=== PATIENT | female | born 1945 | race Caucasian/White ===

== ENCOUNTER 2020-07-31 16:16 | IRF | payer MEDICARE, OTHER, SELFPAY ==
--- NOTE | ~2020-07-31 | CT_ITS ---
EXAMINATION: CT abdomen pelvis wo/w con DATE: 08/14/2020 17:06 INDICATION: Hematuria with blood clot TECHNIQUE: Computed tomography (CT) of the abdomen and pelvis was performed without and with 130 cc O mnipaque 350 intravenous contrast. The dose-length product was 1206.56 mGy-cm. COMPARISON: None. FINDINGS: There is a 5 mm right lower lobe nodule, partially visualized. There are small pleural effu sions. There is left lower lobe atelectasis. There is ascites. There is complex heterogeneous enhancing soft tissue in the bladder which may relat e to blood clots, although malignancy is not excluded. There is a Haskins catheter in the bladder which is displaced to the right. Gallbladder is present. Small subcentimeter hypodensity of the left hepatic lobe, too small to characterize., Although likely benign. The spleen, pancreas, adrenal glands and kidneys are unremarkable. Severe lumbar spondylosis with levoscoliosis. There are extensive postsurgical changes in the lower thoracic and upper lumbar spine. There is a T12 body fracture with implant between the T11 and L1 vertebra. Pathologic fracture cannot be excluded. IMPRESSION: 1. Heterogeneous enhancing soft tissue in the bladder which may relate to blood clots, although malig deidre is not excluded. Recommend urology consultation. 2: Nonspecific 5 mm right lower lobe nodule. Differential diagnosis includes benign etiology such as granulomatous disease versus metastatic disease. 3: Small pleural effusions. 4: Small amount of ascites in the abdomen and pelvis. Reviewed, dictated and finalized at location A. RITY ATTENDANT IMPRESSION: 1. Heterogeneous enhancing soft tissue in the bladder which may relate to blood clots, although malignancy is not excluded. Recommend urology consultation. 2: Nonspecific 5 mm right lower lobe nodule. Differential diagnosis includes be nign etiology such as granulomatous disease versus metastatic disease. 3: Small pleural effusions. 4: Small amount of ascites in the abdomen and pelvis.
--- NOTE | ~2020-07-31 | XR_ITS ---
EXAMINATION: XR abdomen/kub 1V DATE: 08/14/2020 08:35 INDICATION: Abdominal pain. TECHNIQUE: A supine view of the abdomen on 2 radiographs was obtained. COMPARISON: None. FINDINGS: There are no dilated loops of bowel. There is a moderate volume of stool in the colon. Ther e are changes of anterior and posterior fusion procedures in thoracolumbar spine. There are airspace opacities in left lung lower lobe. IMPRESSION: 1. Nonobstructive bowel gas pattern. 2. Airspace opacities at left lung lower lobe, consistent with atelectasis versus pneumonia. Reviewed, dictated and finalized at location A. WAY SIGNAL OPERATOR IMPRESSION: 1. Nonobstructive bowel gas pattern. 2. Airspace opacities at left lung lower lobe, consistent with atelectasis vers us pneumonia.
--- NOTE | ~2020-07-31 | XR_ITS ---
EXAMINATION: XR lumbar spine 2-3V DATE: 08/13/2020 08:50 INDICATION: Low back pain. TECHNIQUE: 3 views of lumbar spine were obtained. COMPARISON: None. FINDINGS: There is 7 degrees levocurvature of lumbar spine. There is 7 mm anterolisthesis of L4 on L5 . There are changes of posterior fusion procedure from T10 to L2. There is a fracture of T12 vertebra l body, and there is an implant between the endplates of T11 and L1. There is moderately decreased di sc height at L3-L4 and severely decreased disc height at L4-L5 and L5-S1. There is severe facet joint osteoarthritis from L3-L4 through L5-S1. There is resection of the medial aspects of the T12 ribs. IMPRESSION: 1. Severe lumbar spondylosis. 2. Posterior fusion procedure from T10 to L2. 3. T12 vertebral body fracture with implant between the T11 and L1 vertebral bodies. Reviewed, dictated and finalized at location A. RESOLUTION SPECIALIST IMPRESSION: 1. Severe lumbar spondylosis. 2. Posterior fusion procedure from T10 to L2. 3. T12 vertebral body fracture with implant between the T11 and L1 vertebral linus dies.
--- NOTE | ~2020-07-31 | XR_ITS ---
EXAMINATION: XR thoracic spine 2V DATE: 08/13/2020 08:50 INDICATION: Back pain. TECHNIQUE: 3 views of thoracic spine were obtained. COMPARISON: None. FINDINGS: There is 30 degrees dextroscoliosis from T4 to T8. There is a fracture of T12 vertebral bod y. There is an implant between the T11 and L1 endplates. There are changes of posterior fusion proced ure from T10 to L2 with pedicle screws in T10, T11, L1, and L2. There has been resection of the media l aspects of the T12 ribs. There is mild anterior wedging of T8 vertebral body. There is moderately d ecreased disc height at T5-T6 and severely decreased disc height at T6-T7. There is mildly decreased disc height at multiple levels. There is a right internal jugular port with tip in superior vena cava . IMPRESSION: 1. Age-indeterminate mild compression fracture of T8. 2. T12 fracture with implant between the T11 and L1 endplates. 3. Posterior fusion procedure from T10 to L2. 4. Severe mid thoracic spondylosis. 5. Thoracic dextroscoliosis. Reviewed, dictated and finalized at location A. ORT REFUELING HANDLER
--- NOTE | ~2020-07-31 | XR_ITS ---
EXAMINATION: XR chest 1V portable EXAM DATE: 08/19/2020 09:05 INDICATION: Elevated white blood cell count, possible pneumonia. TECHNIQUE: Portable AP frontal chest x-ray was obtained. Correlation is made to thoracic x-ray from 10/14/2019, is causing known cancer. FINDINGS: There is approximately 3 cm rounded opacity projecting over the right-sided Chemo-Port. Dif ferential diagnosis includes acute pneumonia, metastatic disease. There is prominent right apical ret iculation, could be scarring but pneumonia also possible. Possible left midlung zone 1 cm nodular den sity. Some left basilar linear scarring. Skin fold over the left hemithorax, no pneumothorax suspecte d. Thoracal lumbar Stanton rods, lower thoracic corpectomy. Mild to moderate mid thoracic dextrosc oliosis. IMPRESSION: Right-sided 3 cm density and some right apical opacities, could be pneumonia. Left-sided 1 cm density. Malignancy/metastatic disease also possible. Follow-up chest x-ray or CT after antibiot ics course recommended. Reviewed, dictated and finalized at location A. INE MAINTENANCE TECHNICIAN IMPRESSION: Right-sided 3 cm density and some right apical opacities, could be pneumonia. Left-sided 1 cm density. Malignancy/metastatic disease also possible . Follow-up chest x-ray or CT after antibiotics course recommended.
--- NOTE | 2020-07-31 16:38 | PC.NURSE ---
This patient, Bambi Anderson, was admitted to [facility] Room 223-02. Patient/family oriented to hospital policies and general routines including ID bracelet, bed and alarms, visiting hours, pain management, procedures, bathroom and other care routines, personal items, smoking policy, room service/diet, and visiting hours. Information on how to activate the Rapid Response Team has been discussed. Patient/Family are encouraged to report perceived risks to care and to ask questions if they do not understand what they are told or what they should do.
[2020-07-31 16:39] VITALS: BP 143/76; PULSE 93; RESP 20; TEMP 37; O2SAT 99; BMI 28.5
[2020-07-31] MEDS: LATANOPROST 0.005% OP SOLN 2.5 ML BTL 1 DROP EACH EYE (21:29)
[2020-07-31] MEDS: CYCLOBENZAPRINE HCL 10 MG TABLET PO (21:29)
[2020-07-31] MEDS: DEXAMETHASONE 4 MG TABLET PO (21:29)
[2020-07-31 22:00] VITALS: BP 138/76; PULSE 92; RESP 18; TEMP 36.8; O2SAT 100
[2020-08-01] MEDS: ACETAMINOPHEN 500 MG TABLET 1000 MG PO (03:44)
[2020-08-01 05:23] LABS: Basophils Percent Auto 0.3 % (0.2-1.2); Eosinophils Percent Auto 0.3 % (0-4.4); Hematocrit 27.8 % (37.0-47.0); Hemoglobin 9.5 g/dL (12.0-15.0); Immature Granulocyte Absolute 0.31 K/mm3 (0.00-0.031); Immature Granulocyte Percent A 9.7 % (0-0.5); Lymphocytes Percent Auto 15.7 % (18.3-44.2); Mean Corpuscular HGB Conc 34.2 g/dl (32-36); Mean Corpuscular Hemoglobin 30.7 pg (26-34); Mean Platelet Volume 10.6 fl (7.4-10.4); Monocytes Absolute Auto 0.4 K/mm3 (0.1-0.6); Platelet Count Result 86 k/mm3 (150-375); Red Blood Count 3.09 M/mm3 (4.2-5.4); Red Cell Distribution Width 14.4 % (11.5-14.5); White Blood Count 3.2 K/mm3 (4.5-10.0)
[2020-08-01 05:41] LABS: Anion Gap -2 mmol/L (8-16); Blood Urea Nitrogen 28 mg/dL (7-17); Calcium 7.5 mg/dL (8.4-10.2); Carbon Dioxide 35 mmol/L (22-30); Chloride 101 mmol/L (98-107); Estimated CRCL calculation 58 ml/min; Estimated Glomerular Filt Rate > 60; Glucose 99 mg/dL (65-105); Potassium 3.5 mmol/L (3.4-5.0); Sodium 134 mmol/L (137-145)
[2020-08-01 06:00] VITALS: BP 154/76; PULSE 78; RESP 18; TEMP 36.5; O2SAT 100
[2020-08-01 09:05] VITALS: PULSE 78
[2020-08-01] MEDS: CHOLECALCIFEROL 1,000 UNITS TABLET 1000 UNITS PO (09:05)
[2020-08-01] MEDS: METOPROLOL SUCCINATE EXT REL 50 MG TABCR PO (09:05)
[2020-08-01] MEDS: DOCUSATE SODIUM 100 MG CAPSULE PO ×2 (09:05→17:50)
[2020-08-01] MEDS: SIMVASTATIN 20 MG TABLET 40 MG PO (09:05)
[2020-08-01] MEDS: DEXAMETHASONE 2 MG TABLET PO ×2 (09:05→17:52)
[2020-08-01] MEDS: CYANOCOBALAMIN 1,000 MCG TABLET 1000 MCG PO (09:05)
[2020-08-01] MEDS: FAMOTIDINE 20 MG TABLET PO (09:05)
[2020-08-01] MEDS: hydroCHLOROthiazide 25 MG TABLET PO (09:05)
[2020-08-01] MEDS: MULTIVITAMINS /C LUTEIN (CENTRUM SILVER) TABLET *BKC 1 TAB PO (09:05)
[2020-08-01 12:17] VITALS: BMI 28.5
--- NOTE | 2020-08-01 12:17 | WPDREHABHP ---
H&P: HPI History of Present Illness Date/Time: 08/01/20 12:17 Chief complaint: T12 Patholoigic burst fx Narrative: Bambi Anderson is a 74 year old femaleHISTORY OF PRESENT ILLNESS: The patient's primary rehab impairment category is Spinal cord dysfunction that is non traumatic in nature The etiologic diagnosis is T12 pathological burst fracture with severe spinal stenosis and mild cord signal abnormalities I saw this patient [id number] on August 01, 2020 at 11:30 a.m. The patient is a 74 years old female with primary medical history of hypertension, hearing loss, glaucoma, bladder cancer with bone Herron states is, right ventricular apex mass, multiple subcutaneous lesion, is status post TURB on April 09, 2020, on gemcitabine / cisplatin cycle 2, and is status post therapeutic radiation treatment to sacrum on July 10, 2020. The patient previously ambulated with a cane with bilateral back and hip pain without radiation and mild weakness for the last several months. The patient endorses numbness from the waist to feet. MRI and CT demonstrates T12 pathological burst fracture with severe stenosis of his spinal canal mild cord signal abnormality. Between JanuaryApril 2020 multiple masses and lesions in various locations were discovered via Various imaging and attempted procedures. medical oncology was consulted and reported the patient has baseline functional status high enough to receive substantial benefit from surgical intervention. Oncology recommended to proceed with spinal cord decompression as per Neurosurgery, with legal receptionist of CTX afterwards. The patient underwent a T10 L2 PSF with T12 corpectomy on 07/26 by . Postoperative Bird the patient admitted to ICU for blood pressure augmentation and neurological monitoring. E coli UTI was present on urinalysis and urine culture on 07/24. She is on antibiotic prophylaxis of vancomycin and ceftriaxone for spinal surgery a 3 day course of ceftriaxone will also cover UTI is starting 12 4. On 07/29 the patient's platelet was 40 and she was transfused 1unit of platelets with increased to 148. The patient has experience postoperative complications of bilateral leg weakness, ABLA, acute postoperative pain, hypokalemia, hypomagnesemia elevated BUN, elevated troponin in setting of demand ischemia, hypocalcemia thrombocytopenia, leukocytosis, UTI with urinary incontinence. The patient is awake alert oriented x3 she was discharged to [facility]. Patient is on Lovenox for DVT prophylaxis which will be continued until she is ambulating 150ft consistently. By a tics are completed. Patient will set up appointment to follow up with oncologist following rehab Completion. Patient completed chemotherapy in June. COVID: The patient has not traveled outside the [place] or had contact with someone who is ill that has traveled outside the [place] in the past 21 days the patient has not traveled to an area of the [place] there is experiencing known transmission of the Coronavirus and has not had close personal contact with anyone that has. The patient does not have a fever. The patient is not experiencing lower respiratory illness symptoms. the patient tested negative for COVID on July 24, 2020 Therapy was initiated at the [facility] facility and the patient transferred to us from [facility] on July 31, 2020 FALLS OR SURGERIES: the patient has had major surgery in the last 100 days( [id number] with T12 corpectomy on July 26, 2020) the patient has had falls in the past 6 months. The patient has had falls with injury in the past 6 months. PAST MEDICAL HISTORY: hyperlipidemia, hearing loss, glaucoma, processes, vitamin-D deficiency, bladder cancer with bone metastatic disease, bone lesions in the right humerus, or lesions in the left pelvic bone, bone lesions in T12 vertebra with spinal cord compression, Hypertension hypertension right ventricle apex mass multiple subcutaneous lesions, on Octo
[2020-08-01 14:00] VITALS: BP 128/56; PULSE 93; RESP 18; TEMP 36.5; O2SAT 98
--- NOTE | 2020-08-01 14:59 | RPD ---
INDIVIDUALIZED PLAN OF CARE FOR Bambi Anderson Brief Synthesis of Pre-Admission Screen, Post-Admission Evaluation and Therapy Evaluations: The patient presents to rehab with T12 pathologic burst fracture with severe spinal stenosis with mild cord signal abnormality. Comorbidities include s/p T10-L2 posterior spinal fusion and T12 corpectomy, stage IVB urothelial carcinoma, HTN, hyperlipidemia, hearing loss, glaucoma, osteoporosis, Vitamin D deficiency, bladder cancer with bone mets, bone lesions in the right humerus, bone lesions left pelvic bone, bone lesion T12 vertebra with c/f spinal cord compression, right ventricle apex mass, multiple subcutaneous lesions, acute post-operative pain, acute blood loss anemia, bilateral leg weakness, hypokalemia, hypomagnesemia, elevated BUN, hypocalcemia, leukocytosis, E.Coli UTI with urinary incontinence, and thrombocytopenia. The complexity of the patient's medical management, nursing, and therapy needs require an inpatient rehab hospital stay with a physician-led interdisciplinary team approach. The patient?s needs will be best met in an intensive program vs. at a lower level of care. The patient requires physician services for neurology services, medical oversight, and coordination of care. The patient requires nursing services for frequent neuro checks, anticoagulation therapy, medication management and education, pressure relief and skin care management, monitoring of labs, bowel and bladder training, and fall/safety precautions. Deficits include:ADLs, Balance, Endurance, Family Training/Education, Mobility, Pain Management, ROM, Safety, Strength, Transfers Infrastructure Tech/Case Management for: Discharge Planning and Patient/Family Counseling Physical Therapy: 5 days per week for 90 minutes. Treatments may include: Therapeutic Exercise, Gait Training, Neuromuscular Re-education, Transfer Training, Community Reintegration, Bed Mobility, Patient/Family Education, Wheelchair Mobility Group Therapy/Concurrent Therapy Rationales: -Improve attention span during functional activities in a distracted environment. -Enhance problem solving and/or adequate judgment skills during functional activities in a distracted environment. -Promote increased safety awareness in a distracted environment to reduce fall risk with functional tasks, transfers, and ambulation to allow a more safe, self-sufficient return to the home environment. -Improve dynamic balance skills to promote safety and independence with functional activities in a distracted environment for maximum gain. Occupational Therapy: 5 days per week for 90 minutes. Treatments may include: Therapeutic Exercise, Therapeutic Activity, Cognitive Training, Self-Care Transfer Training, Community Reintegration, Home Management, Patient/Family Education, Wheelchair Mobility Training, Energy Conservation Training Group Therapy/Concurrent Therapy Rationales: -Allow therapist to observe and teach generalization and carry-over of skills learned in individual therapy. -Enhance problem solving and sequencing skills during therapeutic activities in a distracted environment. -Promote increased safety awareness in a realistic setting to reduce fall risk with functional tasks due to visual and verbal distractions. -Increase functional level with ADLs, ADL transfers and use of adaptive equipment through therapeutic activities with others while promoting safety to allow a more safe, self-sufficient return home. Medical Prognosis: Good Anticipated Length of Stay: 14 days Rehab Goals: Eating Goal: 06-Independent Oral Hygiene Goal: 06-Independent Toileting Hygiene Goal: 03-Partial/Moderate Assistance Shower/Bathe Self Goal: 03-Partial/Moderate Assistance Upper Body Dressing Goal: 05-Setup or Clean Up Assistance Lower Body Dressing Goal: 03-Partial/Moderate Assistance Putting On/Taking Off Footwear Goal: 03-Partial/Moderate Assistance Rolling Left and Right Goal: 04-Supervision or Touching Assist
[2020-08-01] MEDS: LATANOPROST 0.005% OP SOLN 2.5 ML BTL 1 DROP EACH EYE (20:21)
[2020-08-01] MEDS: CYCLOBENZAPRINE HCL 10 MG TABLET PO (20:21)
[2020-08-02] VITALS (8 sets, daily range): BP systolic 124–139; BP diastolic 60–69; PULSE 74–84; RESP 18–20; TEMP 36.6–36.7; O2SAT 98–100
[2020-08-02] MEDS: MULTIVITAMINS /C LUTEIN (CENTRUM SILVER) TABLET *BKC 1 TAB PO (08:30)
[2020-08-02] MEDS: SIMVASTATIN 20 MG TABLET 40 MG PO (08:30)
[2020-08-02] MEDS: DEXAMETHASONE 2 MG TABLET PO ×2 (08:30→17:15)
[2020-08-02] MEDS: CYANOCOBALAMIN 1,000 MCG TABLET 1000 MCG PO (08:31)
[2020-08-02] MEDS: DOCUSATE SODIUM 100 MG CAPSULE PO (08:31)
[2020-08-02] MEDS: CHOLECALCIFEROL 1,000 UNITS TABLET 1000 UNITS PO (08:31)
[2020-08-02] MEDS: hydroCHLOROthiazide 25 MG TABLET PO (08:31)
[2020-08-02] MEDS: METOPROLOL SUCCINATE EXT REL 50 MG TABCR PO (08:31)
[2020-08-02] MEDS: FAMOTIDINE 20 MG TABLET PO (08:31)
[2020-08-02] MEDS: ACETAMINOPHEN 500 MG TABLET 1000 MG PO ×2 (08:38→15:39)
[2020-08-02] MEDS: CYCLOBENZAPRINE HCL 10 MG TABLET PO (20:25)
[2020-08-02] MEDS: LATANOPROST 0.005% OP SOLN 2.5 ML BTL 1 DROP EACH EYE (20:25)
[2020-08-03 06:00] VITALS: BP 133/84; PULSE 81; RESP 20; TEMP 36.7; O2SAT 98
[2020-08-03] MEDS: CHOLECALCIFEROL 1,000 UNITS TABLET 1000 UNITS PO (09:27)
[2020-08-03] MEDS: CYANOCOBALAMIN 1,000 MCG TABLET 1000 MCG PO (09:27)
[2020-08-03] MEDS: FAMOTIDINE 20 MG TABLET PO (09:28)
[2020-08-03 09:29] VITALS: PULSE 81
[2020-08-03] MEDS: METOPROLOL SUCCINATE EXT REL 50 MG TABCR PO (09:29)
[2020-08-03] MEDS: SIMVASTATIN 20 MG TABLET 40 MG PO (09:30)
[2020-08-03] MEDS: MULTIVITAMINS /C LUTEIN (CENTRUM SILVER) TABLET *BKC 1 TAB PO (09:30)
[2020-08-03] MEDS: DEXAMETHASONE 2 MG TABLET PO (09:30)
--- NOTE | 2020-08-03 10:13 | WPDNEURORHBP ---
Subjective Date/time seen: 08/03/20 10:13 74 years old lady with spinal cord dysfunction nontraumatic in nature because of the pathological T12 burst fracture and severe spinal stenosis has significant bilateral pitting edema of lower extremities in addition to ongoing comorbid conditions of 1. Hypertension 2. Hearing loss 3. Glaucoma 4. Bladder cancer 5. Bone Herron status is with right ventricular apex mass and status post radiation treatment involving the therapy has no specific complaints except the edema of the lower extremities Review of Systems Review of Systems: All systems reviewed & are unremarkable except as noted in HPI and below Exam Narrative: Exam Narrative: on examination she is awake alert in no obvious acute distress, his speech nor dysphasic not dysarthric, visual mendes are normal, no facial asymmetry able to move upper extremities well, and lower extremities are with bilateral pitting edema though she is able to wiggle the toes Objective Data Vital Signs Vital Signs: Vital Signs - 24 hr 08/02/20 14:00 08/02/20 15:39 08/02/20 22:00 Temperature 36.6 C 36.6 C 36.7 C Pulse Rate 74 84 Respiratory Rate 20 18 Blood Pressure 127/60 124/69 Pulse Oximetry 100 98 08/03/20 06:00 08/03/20 09:29 Temperature 36.7 C Pulse Rate 81 81 Respiratory Rate 20 Blood Pressure 133/84 Pulse Oximetry 98 Intake/Output Intake/Output: Intake & Output 07/31/20 08/01/20 08/02/20 08/03/20 23:59 23:59 23:59 23:59 Intake Total 240 960 720 240 Balance 240 960 720 240 Meds/Results Medications: Active Medications Generic Name Dose Route Start Last Admin Trade Name Freq PRN Reason Stop Dose Admin Acetaminophen 1,000 mg 07/31/20 17:34 08/02/20 15:39 Acetaminophen 500 Mg Tablet PO 1,000 mg Q6H PRN Administration Pain (Scale Score 1-3) Cyanocobalamin 1,000 mcg 08/01/20 09:00 08/03/20 09:27 Cyanocobalamin 1,000 Mcg Tablet PO 1,000 mcg DAILY MORA Administration Cyclobenzaprine HCl 10 mg 07/31/20 21:00 08/02/20 20:25 Cyclobenzaprine Hcl 10 Mg Tablet PO 10 mg HS MORA Administration Dexamethasone 2 mg 08/03/20 09:00 08/03/20 09:30 Dexamethasone 2 Mg Tablet PO 08/04/20 09:01 2 mg DAILY MOAR Administration Docusate Sodium 100 mg 08/01/20 09:00 08/03/20 09:43 Docusate Sodium 100 Mg Capsule PO Not Given BID [facility] Enoxaparin Sodium 30 mg 08/01/20 09:00 Enoxaparin 30 Mg/0.3 Ml Syringe SUB-Q DAILY MORA Famotidine 20 mg 08/01/20 09:00 08/03/20 09:28 Famotidine 20 Mg Tablet PO 20 mg DAILY MORA Administration Hydrochlorothiazide 25 mg 08/01/20 09:00 08/02/20 08:31 Hydrochlorothiazide 25 Mg Tablet PO 25 mg DAILY MORA Administration Latanoprost 1 drop 07/31/20 21:00 08/02/20 20:25 Latanoprost 0.005% Op Soln 2.5 Ml Btl EACH EYE 1 drop HS MORA Administration Metoprolol Succinate 50 mg 08/01/20 09:00 08/03/20 09:29 Metoprolol Succinate Ext Rel 50 Mg Tabcr PO 50 mg DAILY MORA Administration Multivitamins/Minerals 1 tab 08/01/20 09:00 08/03/20 09:30 Multivitamins /C Lutein (Centrum Silver) Tablet *Bkc PO 1 tab DAILY MORA Administration Oxycodone HCl 10 mg 07/31/20 17:34 Oxycodone Hcl (*Crx) 5 Mg Tab Ir PO Q4H PRN Pain (Scale Score 7-10) Simvastatin 40 mg 08/01/20 09:00 08/03/20 09:30 Simvastatin 20 Mg Tablet PO 40 mg DAILY MORA Administration Vitamin D 1,000 units 08/01/20 09:00 08/03/20 09:27 Cholecalciferol 1,000 Units Tablet PO 1,000 units DAILY MORA Administration Progress Note: A&P Assessment and Plan (1) Spinal cord stimulator dysfunction: Code(s): T85.192A - Other mechanical complication of implanted electronic neurostimulator of spinal cord electrode (lead), initial encounter Status: Acute (2) Pathological fracture: Code(s): M84.40XA - Pathological fracture, unspecified site, initial encounter for fracture Status: Acute (3) Hyperte
--- NOTE | 2020-08-03 10:20 | WPDNEUROPN ---
Objective Data Vital Signs Vital Signs: Vital Signs - 24 hr 08/02/20 14:00 08/02/20 15:39 08/02/20 22:00 Temperature 36.6 C 36.6 C 36.7 C Pulse Rate 74 84 Respiratory Rate 20 18 Blood Pressure 127/60 124/69 Pulse Oximetry 100 98 08/03/20 06:00 08/03/20 09:29 Temperature 36.7 C Pulse Rate 81 81 Respiratory Rate 20 Blood Pressure 133/84 Pulse Oximetry 98 Intake/Output Intake/Output: Intake & Output 07/31/20 08/01/20 08/02/20 08/03/20 23:59 23:59 23:59 23:59 Intake Total 240 960 720 240 Balance 240 960 720 240 Meds/Results Medications: Active Medications Generic Name Dose Route Start Last Admin Trade Name Freq PRN Reason Stop Dose Admin Acetaminophen 1,000 mg 07/31/20 17:34 08/02/20 15:39 Acetaminophen 500 Mg Tablet PO 1,000 mg Q6H PRN Administration Pain (Scale Score 1-3) Cyanocobalamin 1,000 mcg 08/01/20 09:00 08/03/20 09:27 Cyanocobalamin 1,000 Mcg Tablet PO 1,000 mcg DAILY MORA Administration Cyclobenzaprine HCl 10 mg 07/31/20 21:00 08/02/20 20:25 Cyclobenzaprine Hcl 10 Mg Tablet PO 10 mg HS MORA Administration Dexamethasone 2 mg 08/03/20 09:00 08/03/20 09:30 Dexamethasone 2 Mg Tablet PO 08/04/20 09:01 2 mg DAILY MORA Administration Docusate Sodium 100 mg 08/01/20 09:00 08/03/20 09:43 Docusate Sodium 100 Mg Capsule PO Not Given BID MORA Enoxaparin Sodium 30 mg 08/01/20 09:00 Enoxaparin 30 Mg/0.3 Ml Syringe SUB-Q DAILY MORA Famotidine 20 mg 08/01/20 09:00 08/03/20 09:28 Famotidine 20 Mg Tablet PO 20 mg DAILY MORA Administration Hydrochlorothiazide 25 mg 08/01/20 09:00 08/02/20 08:31 Hydrochlorothiazide 25 Mg Tablet PO 25 mg DAILY MORA Administration Latanoprost 1 drop 07/31/20 21:00 08/02/20 20:25 Latanoprost 0.005% Op Soln 2.5 Ml Btl EACH EYE 1 drop HS MORA Administration Metoprolol Succinate 50 mg 08/01/20 09:00 12 09:29 Metoprolol Succinate Ext Rel 50 Mg Tabcr PO 50 mg DAILY MORA Administration Multivitamins/Minerals 1 tab 08/01/20 09:00 12 09:30 Multivitamins /C Lutein (Centrum Silver) Tablet *Bkc PO 1 tab DAILY MORA Administration Oxycodone HCl 10 mg 07/31/20 17:34 Oxycodone Hcl (*Crx) 5 Mg Tab Ir PO Q4H PRN Pain (Scale Score 7-10) Simvastatin 40 mg 08/01/20 09:00 08/03/20 09:30 Simvastatin 20 Mg Tablet PO 40 mg DAILY MORA Administration Vitamin D 1,000 units 08/01/20 09:00 12 09:27 Cholecalciferol 1,000 Units Tablet PO 1,000 units DAILY MORA Administration
[2020-08-03] MEDS: hydroCHLOROthiazide 25 MG TABLET PO (11:04)
[2020-08-03] MEDS: ACETAMINOPHEN 500 MG TABLET 1000 MG PO (13:55)
[2020-08-03 14:00] VITALS: BP 103/47; PULSE 81; RESP 18; TEMP 36.3; O2SAT 98
[2020-08-03] MEDS: CYCLOBENZAPRINE HCL 10 MG TABLET PO (20:25)
[2020-08-03] MEDS: LATANOPROST 0.005% OP SOLN 2.5 ML BTL 1 DROP EACH EYE (20:25)
[2020-08-03 21:04] VITALS: BP 122/67; PULSE 83; RESP 18; TEMP 36.7; O2SAT 97
[2020-08-04 05:26] VITALS: BP 134/68; PULSE 81; RESP 18; TEMP 36.3; O2SAT 97
[2020-08-04] MEDS: CHOLECALCIFEROL 1,000 UNITS TABLET 1000 UNITS PO (09:16)
[2020-08-04] MEDS: DEXAMETHASONE 2 MG TABLET PO (09:18)
[2020-08-04] MEDS: CYANOCOBALAMIN 1,000 MCG TABLET 1000 MCG PO (09:18)
[2020-08-04 09:19] VITALS: PULSE 81
[2020-08-04] MEDS: hydroCHLOROthiazide 25 MG TABLET PO (09:19)
[2020-08-04] MEDS: SIMVASTATIN 20 MG TABLET 40 MG PO (09:19)
[2020-08-04] MEDS: FAMOTIDINE 20 MG TABLET PO (09:19)
[2020-08-04] MEDS: METOPROLOL SUCCINATE EXT REL 50 MG TABCR PO (09:19)
[2020-08-04] MEDS: MULTIVITAMINS /C LUTEIN (CENTRUM SILVER) TABLET *BKC 1 TAB PO (09:19)
[2020-08-04] MEDS: ACETAMINOPHEN 500 MG TABLET 1000 MG PO (09:21)
[2020-08-04] MEDS: oxyCODONE HCL (*CRX) 5 MG TAB IR 10 MG PO (10:14)
--- NOTE | 2020-08-04 11:38 | WPDNEUROPN ---
Progress Note: A&P Assessment and Plan (1) Widespread metastatic malignant neoplastic disease: Code(s): C80.0 - Disseminated malignant neoplasm, unspecified Status: Acute (2) Vitamin D deficiency: Code(s): E55.9 - Vitamin D deficiency, unspecified Status: Acute (3) Hearing loss: Code(s): H91.90 - Unspecified hearing loss, unspecified ear Status: Acute (4) Carcinoma of urinary bladder neck: Code(s): C67.5 - Malignant neoplasm of bladder neck Status: Acute (5) Hypertension: Code(s): I10 - Essential (primary) hypertension Status: Acute (6) Pathological fracture: Code(s): M84.40XA - Pathological fracture, unspecified site, initial encounter for fracture Status: Acute (7) Spinal cord stimulator dysfunction: Code(s): T85.192A - Other mechanical complication of implanted electronic neurostimulator of spinal cord electrode (lead), initial encounter Status: Acute Additional Plan Making improvement will continue the treatment as such Review of Systems Review of Systems: All systems reviewed & are unremarkable except as noted in HPI and below Exam Narrative: Exam Narrative: today her examination revealed her to be awake alert and also happy because of the significant decrease in the edema of both lower extremities. His speech is not dysphasic not dysarthric. The cranial examination is normal particular is no evidence of visual field cut. Face symmetrical. Tongue midline. Heart regular lungs clear abdomen is soft. Objective Data Vital Signs Vital Signs: Vital Signs - 24 hr 08/03/20 14:00 08/03/20 21:04 08/04/20 05:26 Temperature 36.3 C L 36.7 C 36.3 C L Pulse Rate 81 83 81 Respiratory Rate 18 18 18 Blood Pressure 103/47 L 122/67 134/68 Pulse Oximetry 98 97 97 08/04/20 09:19 Temperature Pulse Rate 81 Respiratory Rate Blood Pressure Pulse Oximetry Intake/Output Intake/Output: Intake & Output 08/01/20 08/02/20 08/03/20 08/04/20 23:59 23:59 23:59 23:59 Intake Total 960 720 720 240 Balance 960 720 720 240 Meds/Results Medications: Active Medications Generic Name Dose Route Start Last Admin Trade Name Freq PRN Reason Stop Dose Admin Acetaminophen 1,000 mg 07/31/20 17:34 08/04/20 09:21 Acetaminophen 500 Mg Tablet PO 1,000 mg Q6H PRN Administration Pain (Scale Score 1-3) Cyanocobalamin 1,000 mcg 08/01/20 09:00 08/04/20 09:18 Cyanocobalamin 1,000 Mcg Tablet PO 1,000 mcg DAILY [facility] Administration Cyclobenzaprine HCl 10 mg 07/31/20 21:00 08/03/20 20:25 Cyclobenzaprine Hcl 10 Mg Tablet PO 10 mg HS [facility] Administration Docusate Sodium 100 mg 08/03/20 16:34 Docusate Sodium 100 Mg Capsule PO BID PRN Constipation Enoxaparin Sodium 30 mg 08/01/20 09:00 Enoxaparin 30 Mg/0.3 Ml Syringe SUB-Q DAILY [facility] Famotidine 20 mg 08/01/20 09:00 08/04/20 09:19 Famotidine 20 Mg Tablet PO 20 mg DAILY [facility] Administration Hydrochlorothiazide 25 mg 08/01/20 09:00 08/04/20 09:19 Hydrochlorothiazide 25 Mg Tablet PO 25 mg DAILY [facility] Administration Latanoprost 1 drop 07/31/20 21:00 08/03/20 20:25 Latanoprost 0.005% Op Soln 2.5 Ml Btl EACH EYE 1 drop HS [facility] Administration Metoprolol Succinate 50 mg 08/01/20 09:00 08/04/20 09:19 Metoprolol Succinate Ext Rel 50 Mg Tabcr PO 50 mg DAILY [facility] Administration Multivitamins/Minerals 1 tab 08/01/20 09:00 08/04/20 09:19 Multivitamins /C Lutein (Centrum Silver) Tablet *Bkc PO 1 tab DAILY [facility] Administration Oxycodone HCl 10 mg 07/31/20 17:34 08/04/20 10:14 Oxycodone Hcl (*Crx) 5 Mg Tab Ir PO 10 mg Q4H PRN Administration Pain (Scale Score 7-10) Simvastatin 40 mg 08/01/20 09:00 08/04/20 09:19 Simvastatin 20 Mg Tablet PO 40 mg DAILY [facility] Administration Vitamin D 1,000 units 08/01/20 09:00 08/04/20 09:16 Cholecalciferol 1,000 Units Tablet PO 1,000 u
[2020-08-04 13:37] VITALS: BMI 10.0
[2020-08-04 14:00] VITALS: BP 111/53; PULSE 85; RESP 20; TEMP 36.7; O2SAT 98
[2020-08-04 20:00] VITALS: PULSE 84; RESP 18; O2SAT 97
[2020-08-04] MEDS: CYCLOBENZAPRINE HCL 10 MG TABLET PO (20:27)
[2020-08-04] MEDS: LATANOPROST 0.005% OP SOLN 2.5 ML BTL 1 DROP EACH EYE (20:27)
[2020-08-04 22:00] VITALS: BP 118/55; PULSE 84; RESP 18; TEMP 37.1; O2SAT 97
[2020-08-05 06:00] VITALS: BP 131/70; PULSE 86; RESP 18; TEMP 36.8; O2SAT 97
[2020-08-05 08:00] VITALS: PULSE 86; RESP 18; O2SAT 97
[2020-08-05] MEDS: CHOLECALCIFEROL 1,000 UNITS TABLET 1000 UNITS PO (09:13)
[2020-08-05 09:14] VITALS: PULSE 86
[2020-08-05] MEDS: METOPROLOL SUCCINATE EXT REL 50 MG TABCR PO (09:14)
[2020-08-05] MEDS: FAMOTIDINE 20 MG TABLET PO (09:14)
[2020-08-05] MEDS: SIMVASTATIN 20 MG TABLET 40 MG PO (09:14)
[2020-08-05] MEDS: MULTIVITAMINS /C LUTEIN (CENTRUM SILVER) TABLET *BKC 1 TAB PO (09:14)
[2020-08-05] MEDS: CYANOCOBALAMIN 1,000 MCG TABLET 1000 MCG PO (09:14)
[2020-08-05] MEDS: hydroCHLOROthiazide 25 MG TABLET PO (09:14)
[2020-08-05 14:00] VITALS: BP 143/72; PULSE 87; RESP 20; TEMP 36.8; O2SAT 97
[2020-08-05 20:00] VITALS: PULSE 89; RESP 14; O2SAT 95
[2020-08-05 20:30] VITALS: BP 138/69; PULSE 89; RESP 14; TEMP 36.8; O2SAT 95
[2020-08-05] MEDS: LATANOPROST 0.005% OP SOLN 2.5 ML BTL 1 DROP EACH EYE (20:33)
[2020-08-05] MEDS: CYCLOBENZAPRINE HCL 10 MG TABLET PO (20:33)
[2020-08-06 06:00] VITALS: BP 128/60; PULSE 76; RESP 12; TEMP 36.4; O2SAT 92
[2020-08-06] MEDS: hydroCHLOROthiazide 25 MG TABLET PO (08:40)
[2020-08-06] MEDS: MULTIVITAMINS /C LUTEIN (CENTRUM SILVER) TABLET *BKC 1 TAB PO (08:40)
[2020-08-06 08:41] VITALS: PULSE 484
[2020-08-06] MEDS: METOPROLOL SUCCINATE EXT REL 50 MG TABCR PO (08:41)
[2020-08-06] MEDS: SIMVASTATIN 20 MG TABLET 40 MG PO (08:41)
[2020-08-06] MEDS: FAMOTIDINE 20 MG TABLET PO (08:41)
[2020-08-06] MEDS: CYANOCOBALAMIN 1,000 MCG TABLET 1000 MCG PO (08:47)
[2020-08-06] MEDS: CHOLECALCIFEROL 1,000 UNITS TABLET 1000 UNITS PO (09:08)
--- NOTE | 2020-08-06 09:52 | WPDNEURORHBP ---
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 Her lower extremities edema has significantly improved she is concerned about going back to the [facility] getting the x-rays done as the family has received the latter from the surgical service we will try to clarify the situation for her before she is discharged Review of Systems Review of Systems: All systems reviewed & are unremarkable except as noted in HPI and below Exam Narrative: Exam Narrative: continues to be awake alert cooperative in no obvious acute distress his speech nor dysphasic no dysarthric not dysphonic ear nose throat examination normal neck is supple heart regular lungs clear abdomen is soft nontender and neuro examination unchanged Objective Data Vital Signs Vital Signs: Vital Signs - 24 hr 08/05/20 14:00 08/05/20 20:00 08/05/20 20:30 Temperature 36.8 C 36.8 C Pulse Rate 87 89 89 Respiratory Rate 20 14 14 Blood Pressure 143/72 H 138/69 Pulse Oximetry 97 95 95 08/06/20 06:00 08/06/20 08:41 Temperature 36.4 C Pulse Rate 76 484 H Respiratory Rate 12 Blood Pressure 128/60 Pulse Oximetry 92 Intake/Output Intake/Output: Intake & Output 08/03/20 08/04/20 08/05/20 08/06/20 23:59 23:59 23:59 23:59 Intake Total 720 720 720 240 Balance 720 720 720 240 Meds/Results Medications: Active Medications Generic Name Dose Route Start Last Admin Trade Name Freq PRN Reason Stop Dose Admin Acetaminophen 1,000 mg 07/31/20 17:34 08/04/20 09:21 Acetaminophen 500 Mg Tablet PO 1,000 mg Q6H PRN Administration Pain (Scale Score 1-3) Cyanocobalamin 1,000 mcg 08/01/20 09:00 08/06/20 08:47 Cyanocobalamin 1,000 Mcg Tablet PO 1,000 mcg DAILY [facility] Administration Cyclobenzaprine HCl 10 mg 07/31/20 21:00 08/05/20 20:33 Cyclobenzaprine Hcl 10 Mg Tablet PO 10 mg HS [facility] Administration Docusate Sodium 100 mg 08/03/20 16:34 Docusate Sodium 100 Mg Capsule PO BID PRN Constipation Enoxaparin Sodium 30 mg 08/01/20 09:00 Enoxaparin 30 Mg/0.3 Ml Syringe SUB-Q DAILY [facility] Famotidine 20 mg 08/01/20 09:00 08/06/20 08:41 Famotidine 20 Mg Tablet PO 20 mg DAILY [facility] Administration Hydrochlorothiazide 25 mg 08/01/20 09:00 08/06/20 08:40 Hydrochlorothiazide 25 Mg Tablet PO 25 mg DAILY [facility] Administration Latanoprost 1 drop 07/31/20 21:00 08/05/20 20:33 Latanoprost 0.005% Op Soln 2.5 Ml Btl EACH EYE 1 drop HS [facility] Administration Metoprolol Succinate 50 mg 08/01/20 09:00 08/06/20 08:41 Metoprolol Succinate Ext Rel 50 Mg Tabcr PO 50 mg DAILY [facility] Administration Multivitamins/Minerals 1 tab 08/01/20 09:00 08/06/20 08:40 Multivitamins /C Lutein (Centrum Silver) Tablet *Bkc PO 1 tab DAILY [facility] Administration Oxycodone HCl 10 mg 07/31/20 17:34 08/04/20 10:14 Oxycodone Hcl (*Crx) 5 Mg Tab Ir PO 10 mg Q4H PRN Administration Pain (Scale Score 7-10) Simvastatin 40 mg 08/01/20 09:00 08/06/20 08:41 Simvastatin 20 Mg Tablet PO 40 mg DAILY [facility] Administration Vitamin D 1,000 units 08/01/20 09:00 08/06/20 09:08 Cholecalciferol 1,000 Units Tablet PO 1,000 units DAILY [facility] Administration Progress Note: A&P Assessment and Plan (1) Widespread metastatic malignant neoplastic disease: Code(s): C80.0 - Disseminated malignant neoplasm, unspecified Status: Acute (2) Vitamin D deficiency: Code(s): E55.9 - Vitamin D deficiency, unspecified Status: Acute (3) Hearing loss: Code(s): H91.90 - Unspecified hearing loss, unspecified ear Status: Acute (4) Carcinoma of urinary bladder neck: Code(s): C67.5 - Malignant neoplasm of bladder neck Status: Acute (5) Hypertension: Code(s): I10 - Essential (primary) hypertension Status: Acute (6)
[2020-08-06 10:28] VITALS: PULSE 86
[2020-08-06] MEDS: ACETAMINOPHEN 500 MG TABLET 1000 MG PO (11:12)
[2020-08-06 14:13] VITALS: BP 117/62; PULSE 87; RESP 24; TEMP 37.1; O2SAT 97
[2020-08-06] MEDS: LATANOPROST 0.005% OP SOLN 2.5 ML BTL 1 DROP EACH EYE (20:34)
[2020-08-06] MEDS: CYCLOBENZAPRINE HCL 10 MG TABLET PO (20:34)
[2020-08-06 21:45] VITALS: BP 142/68; PULSE 97; RESP 18; TEMP 36.7; O2SAT 98
[2020-08-07 06:00] VITALS: BP 138/70; PULSE 94; RESP 20; TEMP 36.8; O2SAT 97
[2020-08-07 07:48] VITALS: PULSE 94
[2020-08-07] MEDS: FAMOTIDINE 20 MG TABLET PO (07:48)
[2020-08-07] MEDS: CYANOCOBALAMIN 1,000 MCG TABLET 1000 MCG PO (07:48)
[2020-08-07] MEDS: CHOLECALCIFEROL 1,000 UNITS TABLET 1000 UNITS PO (07:48)
[2020-08-07] MEDS: METOPROLOL SUCCINATE EXT REL 50 MG TABCR PO (07:48)
[2020-08-07] MEDS: hydroCHLOROthiazide 25 MG TABLET PO (07:48)
[2020-08-07] MEDS: SIMVASTATIN 20 MG TABLET 40 MG PO (07:49)
[2020-08-07] MEDS: MULTIVITAMINS /C LUTEIN (CENTRUM SILVER) TABLET *BKC 1 TAB PO (07:49)
--- NOTE | 2020-08-07 09:54 | WPDNEURORHBP ---
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 in addition to the pathological T12 burst fracture resulting in severe spinal stenosis and para paresis with decreased sensation in both lower extremities her wound was examined with the nurse today looks dry couple of places is somewhat moist she stays on the back will keep it open to the air and keep the patient on the side she is not running any temperature and there is no purulent drainage Review of Systems Review of Systems: All systems reviewed & are unremarkable except as noted in HPI and below Functional Status Ambulation Ability Ambulation Assistive Devices: Parallel Bars Exam Narrative: Exam Narrative: on examination she is awake alert very communicative and interested in the care, as mentioned above wound was examined in presence of the nurse there is no obvious drainage and no purulence but it will be kept open to the air and patient will be kept on the side,her speech is not dysphasic not dysarthric follows instructions very well, cranial examination is normal, motor examination is limited in the lower extremities with paraparesis and decreased sensation though her edema is significantly better in both lower extremities and there is no breakage of the skin in the lower extremities, heart regular lungs clear Objective Data Vital Signs Vital Signs: Vital Signs - 24 hr 08/06/20 10:28 08/06/20 14:13 08/06/20 21:45 Temperature 37.1 C 36.7 C Pulse Rate 86 87 97 Respiratory Rate 24 H 18 Blood Pressure 117/62 142/68 H Pulse Oximetry 97 98 08/07/20 06:00 08/07/20 07:48 Temperature 36.8 C Pulse Rate 94 94 Respiratory Rate 20 Blood Pressure 138/70 Pulse Oximetry 97 Intake/Output Intake/Output: Intake & Output 08/04/20 08/05/20 08/06/20 08/07/20 23:59 23:59 23:59 23:59 Intake Total 720 720 720 240 Balance 720 720 720 240 Meds/Results Medications: Active Medications Generic Name Dose Route Start Last Admin Trade Name Freq PRN Reason Stop Dose Admin Acetaminophen 1,000 mg 07/31/20 17:34 08/06/20 11:12 Acetaminophen 500 Mg Tablet PO 1,000 mg Q6H PRN Administration Pain (Scale Score 1-3) Cyanocobalamin 1,000 mcg 08/01/20 09:00 08/07/20 07:48 Cyanocobalamin 1,000 Mcg Tablet PO 1,000 mcg DAILY [facility] Administration Cyclobenzaprine HCl 10 mg 07/31/20 21:00 08/06/20 20:34 Cyclobenzaprine Hcl 10 Mg Tablet PO 10 mg HS [facility] Administration Docusate Sodium 100 mg 08/03/20 16:34 Docusate Sodium 100 Mg Capsule PO BID PRN Constipation Enoxaparin Sodium 30 mg 08/01/20 09:00 Enoxaparin 30 Mg/0.3 Ml Syringe SUB-Q DAILY [facility] Famotidine 20 mg 08/01/20 09:00 08/07/20 07:48 Famotidine 20 Mg Tablet PO 20 mg DAILY [facility] Administration Hydrochlorothiazide 25 mg 08/01/20 09:00 08/07/20 07:48 Hydrochlorothiazide 25 Mg Tablet PO 25 mg DAILY [facility] Administration Latanoprost 1 drop 07/31/20 21:00 08/06/20 20:34 Latanoprost 0.005% Op Soln 2.5 Ml Btl EACH EYE 1 drop HS [facility] Administration Metoprolol Succinate 50 mg 08/01/20 09:00 08/07/20 07:48 Metoprolol Succinate Ext Rel 50 Mg Tabcr PO 50 mg DAILY [facility] Administration Multivitamins/Minerals 1 tab 08/01/20 09:00 08/07/20 07:49 Multivitamins /C Lutein (Centrum Silver) Tablet *Bkc PO 1 tab DAILY [facility] Administration Oxycodone HCl 10 mg 07/31/20 17:34 08/04/20 10:14 Oxycodone Hcl (*Crx) 5 Mg Tab Ir PO 10 mg Q4H PRN Administration Pain (Scale Score 7-10) Simvastatin 40 mg 08/01/20 09:00 08/07/20 07:49 Simvastatin 20 Mg Tablet PO 40 mg DAILY [facility] Administration Vitamin D 1,000 units 08/01/20 09:00 08/07/20 07:48 Cholecalciferol 1,000 Units Tablet PO 1,000 units DAILY [facility] Administration Progress Note: A&P Assessment and Plan (1) Widespread metastatic malignant neoplastic disease: Code(s): C80.0 - Disseminated malignant neopl
[2020-08-07 13:20] LABS: Basophils Absolute Auto 0.1 K/mm3 (0.0-0.1); Basophils Percent Auto 0.5 % (0.2-1.2); Hematocrit 29.5 % (37.0-47.0); Immature Granulocyte Absolute 1.98 K/mm3 (0.00-0.031); Immature Granulocyte Percent A 9.6 % (0-0.5); Lymphocytes Absolute Auto 0.83 K/mm3 (0.9-3.2); Mean Corpuscular HGB Conc 33.9 g/dl (32-36); Mean Corpuscular Hemoglobin 31.3 pg (26-34); Mean Corpuscular Volume 92.5 fl (80-100); Mean Platelet Volume 9.6 fl (7.4-10.4); Monocytes Absolute Auto 1.2 K/mm3 (0.1-0.6); Monocytes Percent Auto 5.7 % (2.6-8.5); Neutrophils Absolute Auto 16.6 K/mm3 (1.3-6.7); Neutrophils Percent Auto 80.2 % (45.5-73.1); Platelet Count Result 142 k/mm3 (150-375); Red Blood Count 3.19 M/mm3 (4.2-5.4); Red Cell Distribution Width 15.6 % (11.5-14.5); White Blood Count 20.7 K/mm3 (4.5-10.0)
--- NOTE | 2020-08-07 13:54 | PC.NURSE ---
Rechecked CBC to check Plt count and 142 and OK to restat Lovenox. WBC's elevated to 20.7, but feels is r/t her CA and mets.
[2020-08-07 14:00] VITALS: BP 102/47; PULSE 92; RESP 20; TEMP 36.7; O2SAT 100
--- NOTE | 2020-08-07 14:38 | PCPTNOTE ---
Addendum entered by Trina Ron PTA 08/07/20 15:46: recommended wheelchair cushion: gel due to patient's poor skin integrity and poor sensation Original Note: Trina Ron PTA completed an inpatient rehab wheelchair evaluation on Bambi Anderson on 08/07/2020. The patient is unable to safely and independently ambulate household distances due to their current impairments. Their diagnosis is T12 Patholoigic burst fx and their impairments include decreased strength, decreased endurance, decreased range of motion, decreased balance, and lower extremity weakness. Bambi's weight bearing status is weight-bearing as tolerated on the bilateral lower legs. The patient demonstrates significant functional mobility limitations that impair their ability to participate in mobility-related activities of daily living (MRADLs), including toileting, feeding, dressing, grooming, and bathing in the customary locations in the home. These limitations cannot be sufficiently resolved by the use of an appropriately fitted cane or walker. It is recommended that the patient utilize a wheelchair for functional mobility within the home in order to facilitate optimal safety, independence and participation in all MRADL's and adequately access their home environment on a regular basis. The patient's home provides adequate access between rooms, maneuvering space, and surfaces to accommodate the recommended wheelchair. The use of a wheelchair for functional mobility is strongly recommended and the patient is receptive to using the wheelchair. The use of this wheelchair will significantly improve the patient's ability to participate in MRADLS and the patient will use it on a regular basis in the home. This will facilitate optimal safety, independence, and participation. The patient has demonstrated sufficient physical and mental capabilities needed to safely propel a manual wheelchair that is provided in the home during a typical day. Recommended Wheelchair Frame: 18x18 Recommended Wheelchair Size: standard Recommended Wheelchair Cushion: standard Wheelchair Leg Recommendations: bilateral elevating leg rests -Elevating legrests are recommended because the patient has significant edema of the lower extremities that requires an elevating legrest. - Anti-tippers are recommended due to patient demonstrating increased risk for falls. They would benefit from anti-tippers with added safety and stabilization. Trina Ron PTA 08/07/2020 Evaluating Therapist Date I agree with and certify that the above recommendation is medically necessary. Referring Physician Date I agree with and certify that the above recommendation is medically necessary. Referring Physician Date
[2020-08-07] MEDS: ENOXAPARIN 40 MG/0.4 ML SYRINGE SUB-Q (17:27)
[2020-08-07] MEDS: CYCLOBENZAPRINE HCL 10 MG TABLET PO (20:26)
[2020-08-07] MEDS: LATANOPROST 0.005% OP SOLN 2.5 ML BTL 1 DROP EACH EYE (20:26)
[2020-08-07] MEDS: ACETAMINOPHEN 500 MG TABLET 1000 MG PO (20:26)
[2020-08-07 21:00] VITALS: BP 105/45; PULSE 75; RESP 12; TEMP 37; O2SAT 97
[2020-08-08 05:21] LABS: Basophils Absolute Auto 0.1 K/mm3 (0.0-0.1); Basophils Percent Auto 0.5 % (0.2-1.2); Eosinophils Percent Auto 0.1 % (0-4.4); Hematocrit 24.3 % (37.0-47.0); Hemoglobin 8.5 g/dL (12.0-15.0); Immature Granulocyte Absolute 1.45 K/mm3 (0.00-0.031); Immature Granulocyte Percent A 10.8 % (0-0.5); Lymphocytes Absolute Auto 0.97 K/mm3 (0.9-3.2); Lymphocytes Percent Auto 7.2 % (18.3-44.2); Mean Corpuscular Hemoglobin 31.1 pg (26-34); Mean Platelet Volume 10.1 fl (7.4-10.4); Monocytes Absolute Auto 0.9 K/mm3 (0.1-0.6); Monocytes Percent Auto 6.3 % (2.6-8.5); Neutrophils Absolute Auto 10.1 K/mm3 (1.3-6.7); Neutrophils Percent Auto 75.1 % (45.5-73.1); Platelet Count Result 128 k/mm3 (150-375); Red Blood Count 2.73 M/mm3 (4.2-5.4); White Blood Count 13.5 K/mm3 (4.5-10.0)
[2020-08-08 06:00] VITALS: BP 128/72; PULSE 87; RESP 14; TEMP 36.3; O2SAT 97
[2020-08-08 06:50] LABS: Anisocytosis 1+ (NORMAL); Hypochromasia 1+ (NORMAL); Platelet Estimate Adequate (Adequate)
[2020-08-08 07:29] LABS: Anion Gap 2 mmol/L (8-16); Blood Urea Nitrogen 46 mg/dL (7-17); Carbon Dioxide 39 mmol/L (22-30); Chloride 93 mmol/L (98-107); Estimated CRCL calculation 50 ml/min; Estimated Glomerular Filt Rate > 60; Glucose 88 mg/dL (65-105); Potassium 2.9 mmol/L (3.4-5.0); Sodium 134 mmol/L (137-145)
[2020-08-08 09:15] VITALS: PULSE 87
[2020-08-08] MEDS: METOPROLOL SUCCINATE EXT REL 50 MG TABCR PO ×2 (09:15→20:25)
[2020-08-08] MEDS: CYANOCOBALAMIN 1,000 MCG TABLET 1000 MCG PO (09:15)
[2020-08-08] MEDS: hydroCHLOROthiazide 25 MG TABLET PO (09:15)
[2020-08-08] MEDS: CHOLECALCIFEROL 1,000 UNITS TABLET 1000 UNITS PO (09:15)
[2020-08-08] MEDS: SIMVASTATIN 20 MG TABLET 40 MG PO (09:15)
[2020-08-08] MEDS: MULTIVITAMINS /C LUTEIN (CENTRUM SILVER) TABLET *BKC 1 TAB PO (09:15)
[2020-08-08] MEDS: FAMOTIDINE 20 MG TABLET PO (09:16)
[2020-08-08] MEDS: ACETAMINOPHEN 500 MG TABLET 1000 MG PO (09:18)
--- NOTE | 2020-08-08 13:07 | PCDIET ---
Nutrition Follow-Up Complete: Nutrition Diagnosis: Increased protein needs as related to wounds as evidenced by deep tissue pressure ulcer reported. Nutrition Goal: Adequate Intake of 75% of meals/supplements Goal in progress. Average intake from 08/02/20 was 74% of recorded meals. Patient reports taking Crescencio BID and is agreeable to try Frozen Nutritional Treat (300kcal, 9g protein). Recommend adding 1x daily and continuing Crescencio BID. Last recorded weight is 66.3 kg. Recommend obtaining new weight. Bowel Motility: BM x 2 today. Labs Reviewed: Hgb (8.5), Hct (24.3), BUN (46), K (2.9), Na (134) Meds Noted: Vitamin B12, Colace, Pepcid, Toprol XL, Hydrochlorothiazide, Zocor, Vitamin D, Centrum, Roxicodone Additional Notes: RN informed of K+ level. Reviewed high potassium foods with patient and encouraged. Buttocks and sacrum with deep tissue ulcers. Will continue to monitor with same goal. Nutrition Monitoring and Evaluation: Will monitor every 7 days.
[2020-08-08 14:00] VITALS: BP 94/66; PULSE 77; RESP 20; TEMP 36.7; O2SAT 97
[2020-08-08] MEDS: POTASSIUM CHLORIDE 20 MEQ TABLET PO (15:22)
[2020-08-08] MEDS: oxyCODONE HCL (*CRX) 5 MG TAB IR 10 MG PO (15:23)
[2020-08-08] MEDS: ENOXAPARIN 40 MG/0.4 ML SYRINGE SUB-Q (15:23)
[2020-08-08 20:00] VITALS: PULSE 81; RESP 12; O2SAT 98
[2020-08-08 20:25] VITALS: PULSE 80
[2020-08-08] MEDS: LATANOPROST 0.005% OP SOLN 2.5 ML BTL 1 DROP EACH EYE (20:26)
[2020-08-08] MEDS: CYCLOBENZAPRINE HCL 10 MG TABLET PO (20:32)
[2020-08-08 21:00] VITALS: BP 107/51; PULSE 81; RESP 12; TEMP 36; O2SAT 98
[2020-08-09 05:29] LABS: Anion Gap 1 mmol/L (8-16); Blood Urea Nitrogen 46 mg/dL (7-17); Calcium 8.6 mg/dL (8.4-10.2); Carbon Dioxide 39 mmol/L (22-30); Chloride 94 mmol/L (98-107); Estimated CRCL calculation 50 ml/min; Estimated Glomerular Filt Rate > 60; Glucose 95 mg/dL (65-105); Sodium 134 mmol/L (137-145)
[2020-08-09 05:43] VITALS: BP 137/78; PULSE 92; RESP 12; TEMP 36.7; O2SAT 100
[2020-08-09] MEDS: hydroCHLOROthiazide 25 MG TABLET PO (08:16)
[2020-08-09] MEDS: CHOLECALCIFEROL 1,000 UNITS TABLET 1000 UNITS PO (08:16)
[2020-08-09] MEDS: SIMVASTATIN 20 MG TABLET 40 MG PO (08:16)
[2020-08-09] MEDS: FAMOTIDINE 20 MG TABLET PO (08:16)
[2020-08-09] MEDS: POTASSIUM CHLORIDE 10 MEQ TABLET.ER PO (08:17)
[2020-08-09] MEDS: MULTIVITAMINS /C LUTEIN (CENTRUM SILVER) TABLET *BKC 1 TAB PO (08:17)
[2020-08-09] MEDS: CYANOCOBALAMIN 1,000 MCG TABLET 1000 MCG PO (08:17)
--- NOTE | 2020-08-09 12:14 | WPDNEURORHBP ---
Subjective Date/time seen: 08/09/20 12:14 74 years old lady with spinal cord dysfunction in addition to pathological T12 burst fracture resulting in spinal stenosis and para paresis along with the ongoing edema both lower extremities which is definitely improving and wound was also checked and is becoming better Review of Systems Review of Systems: All systems reviewed & are unremarkable except as noted in HPI and below Functional Status Ambulation Ability Ability to Ambulate 10 Feet: Total Assistance X 1 Ambulation Assistive Devices: Mechanical Lift Exam Narrative: Exam Narrative: she continues to be awake alert communicative and cooperative ear nose throat examination normal, neck is supple, but regular, lungs clear, abdomen is soft, and Neuro unchanged. Objective Data Vital Signs Vital Signs: Vital Signs - 24 hr 08/08/20 14:00 08/08/20 20:00 08/08/20 20:25 Temperature 36.7 C Pulse Rate 77 81 80 Respiratory Rate 20 12 Blood Pressure 94/66 L Pulse Oximetry 97 98 08/08/20 21:00 08/09/20 05:43 Temperature 36.0 C L 36.7 C Pulse Rate 81 92 Respiratory Rate 12 12 Blood Pressure 107/51 L 137/78 Pulse Oximetry 98 100 Intake/Output Intake/Output: Intake & Output 08/06/20 08/07/20 08/08/20 08/09/20 23:59 23:59 23:59 23:59 Intake Total 720 840 720 240 Balance 720 840 720 240 Meds/Results Medications: Active Medications Generic Name Dose Route Start Last Admin Trade Name Freq PRN Reason Stop Dose Admin Acetaminophen 1,000 mg 07/31/20 17:34 08/08/20 09:18 Acetaminophen 500 Mg Tablet PO 1,000 mg Q6H PRN Administration Pain (Scale Score 1-3) Cyanocobalamin 1,000 mcg 08/01/20 09:00 08/09/20 08:17 Cyanocobalamin 1,000 Mcg Tablet PO 1,000 mcg DAILY [facility] Administration Cyclobenzaprine HCl 10 mg 07/31/20 21:00 08/08/20 20:32 Cyclobenzaprine Hcl 10 Mg Tablet PO 10 mg HS [facility] Administration Docusate Sodium 100 mg 08/03/20 16:34 Docusate Sodium 100 Mg Capsule PO BID PRN Constipation Enoxaparin Sodium 40 mg 08/07/20 14:00 12/16/20 15:23 Enoxaparin 40 Mg/0.4 Ml Syringe SUB-Q 40 mg Q24H [facility] Administration Famotidine 20 mg 08/01/20 09:00 08/09/20 08:16 Famotidine 20 Mg Tablet PO 20 mg DAILY [facility] Administration Hydrochlorothiazide 25 mg 08/01/20 09:00 08/09/20 08:16 Hydrochlorothiazide 25 Mg Tablet PO 25 mg DAILY [facility] Administration Latanoprost 1 drop 07/31/20 21:00 08/08/20 20:26 Latanoprost 0.005% Op Soln 2.5 Ml Btl EACH EYE 1 drop HS [facility] Administration Metoprolol Succinate 50 mg 08/01/20 09:00 08/08/20 20:25 Metoprolol Succinate Ext Rel 50 Mg Tabcr PO 50 mg DAILY [facility] Administration Multivitamins/Minerals 1 tab 08/01/20 09:00 08/09/20 08:17 Multivitamins /C Lutein (Centrum Silver) Tablet *Bkc PO 1 tab DAILY [facility] Administration Oxycodone HCl 10 mg 07/31/20 17:34 08/08/20 15:23 Oxycodone Hcl (*Crx) 5 Mg Tab Ir PO 10 mg Q4H PRN Administration Pain (Scale Score 7-10) Potassium Chloride 10 meq 08/09/20 08:00 08/09/20 08:17 Potassium Chloride 10 Meq Tablet.Er PO 10 meq DAILY@0800 [facility] Administration Simvastatin 40 mg 08/01/20 09:00 08/09/20 08:16 Simvastatin 20 Mg Tablet PO 40 mg DAILY [facility] Administration Vitamin D 1,000 units 08/01/20 09:00 08/09/20 08:16 Cholecalciferol 1,000 Units Tablet PO 1,000 units DAILY [facility] Administration Labs Labs: Laboratory Results - last 24 hr 08/09/20 04:19 Sodium 134 L Potassium 3.0 L Chloride 94 L Carbon Dioxide 39 H Anion Gap 1 L BUN 46 H Creatinine 0.70 Estim Creat Clear Calc 50 Estimated GFR > 60 Glucose 95 Calcium 8.6 Progress Note: A&P Assessment and Plan (1) Widespread metastatic malignant neoplastic disease: Code(s): C80.0 - Disseminated malignant neoplasm, unspecified Status: Acute (2) Vitamin D deficiency: Code(s): E55.9 - Vitamin D deficiency
[2020-08-09] MEDS: ENOXAPARIN 40 MG/0.4 ML SYRINGE SUB-Q (13:15)
[2020-08-09 14:00] VITALS: BP 103/57; PULSE 92; RESP 13; TEMP 37.3; O2SAT 99
--- NOTE | 2020-08-09 14:07 | PC.NURSE ---
pt noted to have blood in urine. Dr King updated and received N.O. to discontinue lovenox . Also received order to change dressing to back daily.
[2020-08-09] MEDS: ACETAMINOPHEN 500 MG TABLET 1000 MG PO (18:31)
[2020-08-09 20:00] VITALS: O2SAT 99
[2020-08-09 22:00] VITALS: BP 88/57; PULSE 92; RESP 20; TEMP 36.7; O2SAT 98
[2020-08-09] MEDS: CYCLOBENZAPRINE HCL 10 MG TABLET PO (22:17)
[2020-08-09] MEDS: LATANOPROST 0.005% OP SOLN 2.5 ML BTL 1 DROP EACH EYE (22:17)
[2020-08-10 05:46] VITALS: BP 98/63; PULSE 91; RESP 20; TEMP 36.8; O2SAT 98
[2020-08-10 06:06] VITALS: BP 120/50
[2020-08-10 08:37] VITALS: PULSE 88
[2020-08-10] MEDS: METOPROLOL SUCCINATE EXT REL 50 MG TABCR PO (08:37)
[2020-08-10] MEDS: POTASSIUM CHLORIDE 10 MEQ TABLET.ER PO (08:37)
[2020-08-10] MEDS: FAMOTIDINE 20 MG TABLET PO (08:37)
[2020-08-10] MEDS: SIMVASTATIN 20 MG TABLET 40 MG PO (08:38)
[2020-08-10] MEDS: hydroCHLOROthiazide 25 MG TABLET PO (08:38)
--- NOTE | 2020-08-10 08:55 | PC.NURSE ---
pt refused senior vitamin, vitamin D and vitamin B 12 this morning. Patient states she doesn't want to take all those. She stated she just wants to take the important ones. Patient stated that all the medications are making her sick. updated.
[2020-08-10 14:00] VITALS: BP 112/56; PULSE 93; RESP 20; TEMP 36.7; O2SAT 93
[2020-08-10] MEDS: LATANOPROST 0.005% OP SOLN 2.5 ML BTL 1 DROP EACH EYE (20:44)
[2020-08-10] MEDS: CYCLOBENZAPRINE HCL 10 MG TABLET PO (20:44)
[2020-08-10 21:32] VITALS: BP 121/55; PULSE 90; RESP 20; TEMP 36.4; O2SAT 97
[2020-08-11 05:35] VITALS: BP 129/59; PULSE 98; RESP 20; TEMP 36.7; O2SAT 97
[2020-08-11 08:50] VITALS: PULSE 98
[2020-08-11] MEDS: POTASSIUM CHLORIDE 10 MEQ TABLET.ER PO (08:50)
[2020-08-11] MEDS: FAMOTIDINE 20 MG TABLET PO (08:50)
[2020-08-11] MEDS: METOPROLOL SUCCINATE EXT REL 50 MG TABCR PO (08:50)
[2020-08-11] MEDS: hydroCHLOROthiazide 25 MG TABLET PO (08:50)
[2020-08-11] MEDS: SIMVASTATIN 20 MG TABLET 40 MG PO (08:51)
[2020-08-11 14:00] VITALS: BP 132/62; PULSE 80; RESP 20; TEMP 36.2; O2SAT 97
--- NOTE | 2020-08-11 14:41 | WPDNEURORHBP ---
Subjective Date/time seen: 08/11/20 14:41 74 years old lady with spinal cord dysfunction in addition to pathological T12 burst fracture resulting in spinal stenosis and para paresis along with the ongoing edema of both lower extremities which is definitely improved but on today's visit she is somewhat feels down because she does not see and of the tunnel she is improving but extremely slowly and has teary eyes Review of Systems Review of Systems: All systems reviewed & are unremarkable except as noted in HPI and below Functional Status Ambulation Ability Ability to Ambulate 10 Feet: Total Assistance X 1 Ambulation Assistive Devices: Mechanical Lift Exam Narrative: Exam Narrative: on examination she is awake alert oriented x3. His speech not dysphasic not dysarthric not dysphonic. Cranial nerve examination is normal. Motor examination of the upper extremities revealed no one-sided or other sided weakness. Lower extremities are paraparetic with 1+ edema absent deep tendon reflexes she is able to wiggle her toes bilaterally wound dressing is being changed she has couple of places needs to be washed will get the wound nurse involved Objective Data Vital Signs Vital Signs: Vital Signs - 24 hr 08/10/20 21:32 08/11/20 05:35 08/11/20 08:50 Temperature 36.4 C 36.7 C Pulse Rate 90 98 98 Respiratory Rate 20 20 Blood Pressure 121/55 L 129/59 L Pulse Oximetry 97 97 08/11/20 14:00 Temperature 36.2 C L Pulse Rate 80 Respiratory Rate 20 Blood Pressure 132/62 Pulse Oximetry 97 Intake/Output Intake/Output: Intake & Output 08/08/20 08/09/20 08/10/20 08/11/20 23:59 23:59 23:59 23:59 Intake Total 720 720 720 480 Balance 720 720 720 480 Meds/Results Medications: Active Medications Generic Name Dose Route Start Last Admin Trade Name Freq PRN Reason Stop Dose Admin Acetaminophen 1,000 mg 07/31/20 17:34 08/09/20 18:31 Acetaminophen 500 Mg Tablet PO 1,000 mg Q6H PRN Administration Pain (Scale Score 1-3) Citalopram Hydrobromide 10 mg 08/11/20 13:55 Citalopram Hydrobromide 10 Mg Tablet PO QAM [facility] Cyclobenzaprine HCl 10 mg 07/31/20 21:00 08/10/20 20:44 Cyclobenzaprine Hcl 10 Mg Tablet PO 10 mg HS [facility] Administration Docusate Sodium 100 mg 08/03/20 16:34 Docusate Sodium 100 Mg Capsule PO BID PRN Constipation Hydrochlorothiazide 25 mg 08/01/20 09:00 08/11/20 08:50 Hydrochlorothiazide 25 Mg Tablet PO 25 mg DAILY [facility] Administration Latanoprost 1 drop 07/31/20 21:00 08/10/20 20:44 Latanoprost 0.005% Op Soln 2.5 Ml Btl EACH EYE 1 drop HS [facility] Administration Metoprolol Succinate 50 mg 08/01/20 09:00 08/11/20 08:50 Metoprolol Succinate Ext Rel 50 Mg Tabcr PO 50 mg DAILY [facility] Administration Oxycodone HCl 10 mg 07/31/20 17:34 08/08/20 15:23 Oxycodone Hcl (*Crx) 5 Mg Tab Ir PO 10 mg Q4H PRN Administration Pain (Scale Score 7-10) Pantoprazole Sodium 40 mg 08/12/20 09:00 Pantoprazole 40 Mg Tablet PO DAILY [facility] Potassium Chloride 10 meq 08/09/20 08:00 08/11/20 08:50 Potassium Chloride 10 Meq Tablet.Er PO 10 meq DAILY@0800 [facility] Administration Simvastatin 40 mg 08/01/20 09:00 08/11/20 08:51 Simvastatin 20 Mg Tablet PO 40 mg DAILY [facility] Administration Progress Note: A&P Assessment and Plan (1) Spinal cord stimulator dysfunction: Code(s): T85.192A - Other mechanical complication of implanted electronic neurostimulator of spinal cord electrode (lead), initial encounter Status: Acute (2) Pathological fracture: Code(s): M84.40XA - Pathological fracture, unspecified site, initial encounter for fracture Status: Acute (3) Hypertension: Code(s): I10 - Essential (primary) hypertension Status: Acute (4) Carcinoma of urinary bladder neck: Code(s): C67.5 - Malignant neoplasm of bladder neck Status: Acute (5) Hearing loss: Code(s): H91.90
[2020-08-11] MEDS: CITALOPRAM HYDROBROMIDE 10 MG TABLET PO (15:27)
[2020-08-11 20:15] VITALS: PULSE 60; RESP 18; O2SAT 98
[2020-08-11] MEDS: CYCLOBENZAPRINE HCL 10 MG TABLET PO (20:46)
[2020-08-11] MEDS: LATANOPROST 0.005% OP SOLN 2.5 ML BTL 1 DROP EACH EYE (20:46)
[2020-08-11 21:45] VITALS: BP 108/44; PULSE 60; RESP 18; TEMP 35.6; O2SAT 98
--- NOTE | 2020-08-12 04:03 | PC.NURSE ---
Pt utilized call nixon asking to stand to void. He has been having difficulty urinating since arrival. Only 100 cc of urine since admission with continued hesitancy. Patient unsuccessful urinating upon standing with 2 staff members standing by. Encourage patient to sit in chair at bedside. Explained to him the potential safety concerns with him sitting and ambulating without assistance or alarm in chair. Patient stated he is fine and does not need any alarm or bells. He will call when he needs us. Encourage patient to allow for chair alarm in the event he would become confused due to anesthesia or pain medications. Patient became agitated and again stated he is not using a chair alarm and will utilize his call nixon. Will continue to monitor patient closely and reinforce safety concerns.
[2020-08-12] MEDS: ACETAMINOPHEN 500 MG TABLET 1000 MG PO ×2 (04:26→22:30)
[2020-08-12 05:40] VITALS: BP 110/65; PULSE 99; RESP 18; TEMP 36.6; O2SAT 96
[2020-08-12 06:00] LABS: Anion Gap 3 mmol/L (8-16); Blood Urea Nitrogen 42 mg/dL (7-17); Calcium 8.4 mg/dL (8.4-10.2); Carbon Dioxide 38 mmol/L (22-30); Chloride 94 mmol/L (98-107); Estimated CRCL calculation 50 ml/min; Estimated Glomerular Filt Rate > 60; Glucose 99 mg/dL (65-105); Sodium 135 mmol/L (137-145)
[2020-08-12 08:49] VITALS: PULSE 99
[2020-08-12] MEDS: METOPROLOL SUCCINATE EXT REL 50 MG TABCR PO (08:49)
[2020-08-12] MEDS: PANTOPRAZOLE 40 MG TABLET PO (08:50)
[2020-08-12] MEDS: CITALOPRAM HYDROBROMIDE 10 MG TABLET PO (08:50)
[2020-08-12] MEDS: POTASSIUM CHLORIDE 10 MEQ TABLET.ER PO (08:50)
[2020-08-12] MEDS: hydroCHLOROthiazide 25 MG TABLET PO (08:51)
[2020-08-12] MEDS: SIMVASTATIN 20 MG TABLET 40 MG PO (08:51)
[2020-08-12 13:51] VITALS: BP 91/46; PULSE 94; RESP 15; TEMP 36.6; O2SAT 98
[2020-08-12] MEDS: LATANOPROST 0.005% OP SOLN 2.5 ML BTL 1 DROP EACH EYE (20:12)
[2020-08-12] MEDS: CYCLOBENZAPRINE HCL 10 MG TABLET PO (20:12)
[2020-08-12 21:50] VITALS: BP 106/47; PULSE 92; RESP 12; TEMP 36.1; O2SAT 98
[2020-08-13 05:10] VITALS: BP 114/62; PULSE 86; RESP 12; TEMP 35.8; O2SAT 97
[2020-08-13 09:04] VITALS: PULSE 84
[2020-08-13] MEDS: SIMVASTATIN 20 MG TABLET 40 MG PO (09:04)
[2020-08-13] MEDS: CITALOPRAM HYDROBROMIDE 10 MG TABLET PO (09:04)
[2020-08-13] MEDS: METOPROLOL SUCCINATE EXT REL 50 MG TABCR PO (09:04)
[2020-08-13] MEDS: PANTOPRAZOLE 40 MG TABLET PO (09:04)
[2020-08-13] MEDS: POTASSIUM CHLORIDE 10 MEQ TABLET.ER PO (09:04)
[2020-08-13] MEDS: hydroCHLOROthiazide 25 MG TABLET PO (09:04)
--- NOTE | 2020-08-13 10:39 | PC.NURSE ---
call placed to Dr Durant's office regarding back incision as well as to let them know that the xrays were obtained and images were pushed through to [facility] for review. message was left and awaiting return call.
--- NOTE | 2020-08-13 10:53 | WPDNEURORHBP ---
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 Initially she has significant edema of the lower extremities which is gradually subsiding. Her wound has been examined which is opening at couple of places we did obtain the wound nurse consultation here but we are going to call the [facility] and inform the neurosurgeon as well she is also receiving other wound treatment. Review of Systems Review of Systems: All systems reviewed & are unremarkable except as noted in HPI and below Functional Status Ambulation Ability Ability to Ambulate 10 Feet: Total Assistance X 1 Ambulation Assistive Devices: Mechanical Lift Exam Narrative: Exam Narrative: On examination she is awake alert oriented x3 his speech nor dysphasic no dysarthric no dysphonic. The cranial nerve examination is normal. Motor examination of the upper extremities reveals no drift of 1 side or the side against gravity. But she is paraparetic in the lower extremities with plus-minus edema of the lower extremities and sluggish deep tendon reflexes. His still she is able to move her both feeds sensation is impaired. The local examination of wound is definitely couple of places leaking addressing has been change the wound nurse consultation was obtained but will also inform the surgeon at [facility] because of her spinal cord involvement. Objective Data Vital Signs Vital Signs: Vital Signs - 24 hr 08/12/20 13:51 08/12/20 21:50 08/13/20 05:10 Temperature 36.6 C 36.1 C L 35.8 C L Pulse Rate 94 92 86 Respiratory Rate 15 12 12 Blood Pressure 91/46 L 106/47 L 114/62 Pulse Oximetry 98 98 97 08/13/20 09:04 Temperature Pulse Rate 84 Respiratory Rate Blood Pressure Pulse Oximetry Intake/Output Intake/Output: Intake & Output 08/10/20 08/11/20 08/12/20 08/13/20 23:59 23:59 23:59 23:59 Intake Total 720 720 600 410 Balance 720 720 600 410 Meds/Results Medications: Active Medications Generic Name Dose Route Start Last Admin Trade Name Freq PRN Reason Stop Dose Admin Acetaminophen 1,000 mg 07/31/20 17:34 08/12/20 22:30 Acetaminophen 500 Mg Tablet PO 1,000 mg Q6H PRN Administration Pain (Scale Score 1-3) Citalopram Hydrobromide 10 mg 08/11/20 13:55 08/13/20 09:04 Citalopram Hydrobromide 10 Mg Tablet PO 10 mg QAM MORA Administration Cyclobenzaprine HCl 10 mg 07/31/20 21:00 08/12/20 20:12 Cyclobenzaprine Hcl 10 Mg Tablet PO 10 mg HS MORA Administration Docusate Sodium 100 mg 08/03/20 16:34 Docusate Sodium 100 Mg Capsule PO BID PRN Constipation Hydrochlorothiazide 25 mg 08/01/20 09:00 08/13/20 09:04 Hydrochlorothiazide 25 Mg Tablet PO 25 mg DAILY MORA Administration Latanoprost 1 drop 07/31/20 21:00 08/12/20 20:12 Latanoprost 0.005% Op Soln 2.5 Ml Btl EACH EYE 1 drop HS MORA Administration Metoprolol Succinate 50 mg 08/01/20 09:00 08/13/20 09:04 Metoprolol Succinate Ext Rel 50 Mg Tabcr PO 50 mg DAILY MORA Administration Oxycodone HCl 10 mg 07/31/20 17:34 08/08/20 15:23 Oxycodone Hcl (*Crx) 5 Mg Tab Ir PO 10 mg Q4H PRN Administration Pain (Scale Score 7-10) Pantoprazole Sodium 40 mg 08/12/20 09:00 08/13/20 09:04 Pantoprazole 40 Mg Tablet PO 40 mg DAILY MORA Administration Potassium Chloride 10 meq 08/09/20 08:00 08/13/20 09:04 Potassium Chloride 10 Meq Tablet.Er PO 10 meq DAILY@0800 MORA Administration Silver Nitrate 1 applic 08/13/20 09:00 Silvergel (Elta) 45 Ml TOPICAL DAILY [facility] Simvastatin 40 mg 08/01/20 09:00 08/13/20 09:04 Simvastatin 20 Mg Tablet PO 40 mg DAILY MORA Administration Radiology Results: ITS Impressions Lumbar Spine X-Ray 08/13/20 08:56 IMPRESSION: 1. Severe lumbar spondylosis. 2. Posterior fusion procedure from T10 to L2. 3. T12 vertebral body fracture with impla
[2020-08-13] MEDS: ACETAMINOPHEN 500 MG TABLET 1000 MG PO ×2 (11:50→20:56)
[2020-08-13] MEDS: SILVERGEL (ELTA) 45 ML 1 APPLIC TOPICAL (12:52)
[2020-08-13 14:00] VITALS: BP 96/42; PULSE 93; RESP 20; TEMP 37.4; O2SAT 97
--- NOTE | 2020-08-13 14:53 | PC.NURSE ---
spoke with Camila from Dr Durant's office. she requested photos of back incision be sent for Dr Durant to look at. photos taken at this time. awaiting further recommendations from Dr Durant at this time. Coverlet dressing reapplied to back incision and is dry and intact at this time.
--- NOTE | 2020-08-13 15:24 | PC.NURSE ---
Dr Durant's office called back and recommended that only gauze be placed where the incision is draining. It is recommended that the sides continue to be open so that air may get to the incision. They also recommended to leave open to air if there is no drainage. It was recommended to call Dr Durant's office back if there is significant increase to the drainage amount for further recommendations.
[2020-08-13 20:34] VITALS: BP 95/55; PULSE 87; RESP 18; TEMP 36.7; O2SAT 99
[2020-08-13] MEDS: CYCLOBENZAPRINE HCL 10 MG TABLET PO (20:56)
[2020-08-13] MEDS: LATANOPROST 0.005% OP SOLN 2.5 ML BTL 1 DROP EACH EYE (20:56)
[2020-08-14] MEDS: oxyCODONE HCL (*CRX) 5 MG TAB IR 10 MG PO ×2 (01:36→07:34)
[2020-08-14 05:20] VITALS: BP 91/49; PULSE 82; RESP 18; TEMP 36.5; O2SAT 98
[2020-08-14] MEDS: POTASSIUM CHLORIDE 10 MEQ TABLET.ER PO (07:36)
--- NOTE | 2020-08-14 08:00 | PC.NURSE ---
pt complaining of severe abdominal pain rated 10/10. oxycodone given. updated and received N.O. for stat abdominal xray, and a CBC also ordered to check hemoglobin related to blood in urine. Patient had no further complaints at this time.
[2020-08-14 08:18] LABS: Basophils Percent Auto 0.2 % (0.2-1.2); Eosinophils Percent Auto 0.1 % (0-4.4); Hematocrit 25.9 % (37.0-47.0); Hemoglobin 8.5 g/dL (12.0-15.0); Immature Granulocyte Absolute 1.01 K/mm3 (0.00-0.031); Immature Granulocyte Percent A 5.6 % (0-0.5); Lymphocytes Absolute Auto 0.79 K/mm3 (0.9-3.2); Lymphocytes Percent Auto 4.4 % (18.3-44.2); Mean Corpuscular HGB Conc 32.8 g/dl (32-36); Mean Corpuscular Hemoglobin 30.8 pg (26-34); Mean Corpuscular Volume 93.8 fl (80-100); Mean Platelet Volume 9.4 fl (7.4-10.4); Monocytes Percent Auto 5.7 % (2.6-8.5); Neutrophils Absolute Auto 15.1 K/mm3 (1.3-6.7); Platelet Count Result 142 k/mm3 (150-375); Red Blood Count 2.76 M/mm3 (4.2-5.4); Red Cell Distribution Width 15.9 % (11.5-14.5); White Blood Count 17.9 K/mm3 (4.5-10.0)
[2020-08-14 09:26] VITALS: PULSE 80
[2020-08-14] MEDS: hydroCHLOROthiazide 25 MG TABLET PO (09:26)
[2020-08-14] MEDS: SILVERGEL (ELTA) 45 ML 1 APPLIC TOPICAL (09:26)
[2020-08-14] MEDS: METOPROLOL SUCCINATE EXT REL 50 MG TABCR PO (09:26)
[2020-08-14] MEDS: SIMVASTATIN 20 MG TABLET 40 MG PO (09:26)
[2020-08-14] MEDS: PANTOPRAZOLE 40 MG TABLET PO (09:26)
[2020-08-14] MEDS: CITALOPRAM HYDROBROMIDE 10 MG TABLET PO (09:26)
--- NOTE | 2020-08-14 12:48 | PCNFU ---
Nutrition Follow-Up Complete: Increased protein needs as related to wounds as evidenced by deep tissue pressure ulcer reported. Goal: Adequate Intake of 75% of meals/supplements Progressing towards goal. We will continue current goal. Pt current nutrition is Regular . Nutrition recommendation: agree Last recorded weight is 66.3 kg, no new weight to report. Bowel Motility:+BM reported 08/13 Labs Reviewed: Hct 25.9,Hgb 8.5 Meds Noted:Zocar,Tylenol, Toprol, Celexa Additional Notes:Nutrition follow up today. Patient having abdominal pain today, ab xray ordered. Blood noted in urine. Patient did refuse breakfast today. Overall intake's have been 25-85% of meals. Patient remains on Crescencio BID for Deep Tissue wound noted. Monitoring: Will monitor every 7 days.
[2020-08-14] MEDS: POTASSIUM CHLORIDE 10 MEQ TABLET PO (13:38)
--- NOTE | 2020-08-14 13:38 | PC.NURSE ---
spoke with Dr King regarding patient's low blood pressures and potassium noted at 3.0. Received order to give 10 mEq now then start 20 mEq daily 08/15/20. Also received new order to discontinue hydrochlorothiazide. Spoke with him to see if patient would benefit from consult to hospitalist. Dr King agreed so hospitalist was consulted. Varsha Sanchez was updated of consult. Urology also consulted due to blood in urine combined with extreme abdominal pain. Cassidy Hart seen patient and requested bladder scan be performed and place peterson catheter if residual greater than 350. Bladder scan performed and noted at approximately 712 mL. Peterson catheter was placed at this time with immediate return of 600 mL blood tinged urine. UA with C & S obtained as well et sent to lab.
[2020-08-14 14:00] VITALS: BP 98/60; PULSE 68; RESP 18; TEMP 37.1; O2SAT 98
--- NOTE | 2020-08-14 15:23 | WPDURCON ---
Assessment and Plan Assessment and plan (1) Widespread metastatic malignant neoplastic disease: Code(s): C80.0 - Disseminated malignant neoplasm, unspecified Status: Acute Assessment and Plan: Being managed by Dr. Cherry oncology. Not a candidate for a cystectomy. (2) Pathological fracture: Code(s): M84.40XA - Pathological fracture, unspecified site, initial encounter for fracture Status: Acute Assessment and Plan: S/p T12 surgery, may be contributing to retention. (3) Gross hematuria: Code(s): R31.0 - Gross hematuria Status: Acute Assessment and Plan: Secondary to infection versus known bladder cancer. Obtain urine for UA/Culture, will treat for UTI if necessary. Clots are present in the urine, known metastatic bladder cancer, potential clot retention? Obtain STAT CT to rule out clot retention. KUB this morning showed no urologic concern. (4) Retention of urine: Code(s): R33.9 - Retention of urine, unspecified Status: Acute Assessment and Plan: Place peterson, may need to switch to a 3 way peterson and start CBI pending CT and UA results. Irrigate bladder manually to irrigate clots out and continue to irrigate until urine is pink. Urology Consult Note HPI Date Seen: 08/14/20 Requesting Physician: Wander King MD Primary Care Provider: Ky Meadows, Consult Narrative Narrative: Bambi Anderson is a 74 year old female who is in C recovering from a T12 pathologic fracture procedure done at [facility] last week. She is c/o pelvic pain and pressure and hematuria that started a few days ago. She denies dysuria, fever, chills, nausea or vomiting. She also states that she has pressure when trying to urinate and doesn't think she is emptying. She has a history of metastatic bladder cancer diagnosed by Dr. Ledesma in our group and had an aborted cystecomty in 04/2020 in which the metastatic disease was discovered, she was then sent to Dr. Cherry for treatment of her metastatic disease. She is hypotensive and very weak/fatigued today.Her WBC is 17.9 which has increased quite a bit since she got here, creatinine is 0.70, a UA was collected and is pending results. Her PVR on bladder scan was 712cc and she is very tender/distended in her abdomen over her bladder. Review of Systems Cardiovascular: Cardiovascular: Denies chest pain Respiratory: Respiratory: Reports no additional respiratory complaints Gastrointestinal: Gastrointestinal: Reports abdominal pain, Denies nausea and Denies vomiting Genitourinary: Genitourinary: Reports hematuria, Denies dysuria, Denies flank pain, Reports urinary hesitancy and Denies urinary urgency PMFSH Family History Family History Father Colon cancer Social History Social History Smoking packs per day: 1 Smoking cigarettes per day: 20.0 Years smoked: 56 Smoking pack-years: 56.00 Smoking status: Former smoker Tobacco type: cigarettes Alcohol intake: former Substance use: former Spiritual care concerns: No Meds Home Medications and Allergies Home Medications Medication Instructions Recorded Confirmed Type acetaminophen 1,000 mg PO Q6H PRN MDD 4000mg 07/31/20 07/31/20 History alendronate 70 mg PO WEEKLY 07/31/20 07/31/20 History aspirin [Adult Aspirin EC Low 81 mg PO DAILY 07/31/20 07/31/20 History Strength] cholecalciferol (vitamin D3) 25 mcg PO DAILY 07/31/20 07/31/20 History cyanocobalamin (vitamin B-12) 1,000 mcg PO DAILY 07/31/20 07/31/20 History [Vitamin B-12] cyclobenzaprine 10 mg PO HS 07/31/20 07/31/20 History dexamethasone 2 mg PO BID 07/31/20 07/31/20 History dexamethasone 2 mg PO DAILY 07/31/20 07/31/20 History dexamethasone 4 mg PO BID 07/31/20 07/31/20 History docusate sodium 100 mg PO BID 07/31/20 07/31/20 History enoxaparin 30 mg SUBCUT DAILY 07/31/2007/31
[2020-08-14 15:43] LABS: Add Urine Microscopic? YES; Appearance Urine Cloudy (Clear); Bacteria Urine 3+ /hpf; Bilirubin Urine Negative (Negative); Blood Urine 3+ (Negative); Color Urine Light Red (Yellow); Glucose Urine UA Negative (Negative); Ketones Urine Negative (Negative); Leukocyte Esterase Ur 3+ LEU/UL (Negative); Nitrate Urine Negative (Negative); Protein Urine 3+ mg/dL (Negative); RBC Urine >75 /hpf (0-2); Renal Epithelial Cells Urine Rare /hpf (None Seen); Specific Grav Ur 1.014 (1.001-1.035); Squamous Epithelial Cell Urine Many /hpf (Few); Urobilinogen Urine Negative mg/dL (<2.0); WBC Clumps Urine Present /HPF; WBC Urine >75 /hpf
--- NOTE | 2020-08-14 17:13 | WPDNEURORHBP ---
Subjective Date/time seen: 08/14/20 17:13 74 years old lady with spinal cord dysfunction in addition to the history of pathological T12 burst fracture resulting in spinal stenosis and paraparesis has been receiving significant therapy over the last several days her edema has decreased. But today she was complaining of abdominal discomfort. Abdominal x-rays were obtained which revealed only nonobstructive bowel gas pattern with air space opacities of left lung lower lobe consistent with the atelectasis versus pneumonia. And her CBC revealed WBC is going up 17.9 from 13.5 though hemoglobin is stable and electrolyte her stable X potassium is 3.0 and BUN 42 also her UA is abnormal. Urine culture is pending. i her depression is better. Review of Systems Review of Systems: All systems reviewed & are unremarkable except as noted in HPI and below Functional Status Ambulation Ability Ability to Ambulate 10 Feet: Total Assistance X 1 Ambulation Assistive Devices: Mechanical Lift Exam Narrative: Exam Narrative: On examination she is awake alert cooperative in no obvious acute distress. His speech is not dysphasic no dysarthric no dysphonic. Cranial nerve examination is normal. Motor examination revealed her to have no changes in upper extremities and the lower extremities are still weak abdomen is nontender with normal bowel sounds lungs are clear with no rhonchi or crepitations Objective Data Vital Signs Vital Signs: Vital Signs - 24 hr 08/13/20 20:34 08/14/20 05:20 08/14/20 09:26 Temperature 36.7 C 36.5 C Pulse Rate 87 82 80 Respiratory Rate 18 18 Blood Pressure 95/55 L 91/49 L Pulse Oximetry 99 98 08/14/20 14:00 Temperature 37.1 C Pulse Rate 68 Respiratory Rate 18 Blood Pressure 98/60 L Pulse Oximetry 98 Intake/Output Intake/Output: Intake & Output 08/11/20 08/12/20 08/13/20 08/14/20 23:59 23:59 23:59 23:59 Intake Total 720 600 710 240 Balance 720 600 710 240 Meds/Results Medications: Active Medications Generic Name Dose Route Start Last Admin Trade Name Freq PRN Reason Stop Dose Admin Acetaminophen 1,000 mg 07/31/20 17:34 08/13/20 20:56 Acetaminophen 500 Mg Tablet PO 1,000 mg Q6H PRN Administration Pain (Scale Score 1-3) Citalopram Hydrobromide 10 mg 08/11/20 13:55 08/14/20 09:26 Citalopram Hydrobromide 10 Mg Tablet PO 10 mg QAM MORA Administration Cyclobenzaprine HCl 10 mg 07/31/20 21:00 08/13/20 20:56 Cyclobenzaprine Hcl 10 Mg Tablet PO 10 mg HS MORA Administration Docusate Sodium 100 mg 08/03/20 16:34 Docusate Sodium 100 Mg Capsule PO BID PRN Constipation Ceftriaxone Sodium/Dextrose 1 gm in 50 mls @ 100 mls/hr 08/14/20 17:00 Rocephin 1 Gm/D5w 50 Ml IVPB Q24H MORA Latanoprost 1 drop 07/31/20 21:00 08/13/20 20:56 Latanoprost 0.005% Op Soln 2.5 Ml Btl EACH EYE 1 drop HS MORA Administration Metoprolol Succinate 50 mg 08/01/20 09:00 08/14/20 09:26 Metoprolol Succinate Ext Rel 50 Mg Tabcr PO 50 mg DAILY MORA Administration Oxycodone HCl 10 mg 07/31/20 17:34 08/14/20 07:34 Oxycodone Hcl (*Crx) 5 Mg Tab Ir PO 10 mg Q4H PRN Administration Pain (Scale Score 7-10) Pantoprazole Sodium 40 mg 08/12/20 09:00 08/14/20 09:26 Pantoprazole 40 Mg Tablet PO 40 mg DAILY MORA Administration Polysaccharide Iron Complex 150 mg 08/14/20 21:00 Polysaccharide Iron Complex 150 Mg Capsule PO HS [facility] Potassium Chloride 20 meq 08/15/20 08:00 Potassium Chloride 10 Meq Tablet.Er PO DAILY@0800 [facility] Silver Nitrate 1 applic 08/13/20 09:00 08/14/20 09:26 Silvergel (Elta) 45 Ml TOPICAL 1 applic DAILY [facility] Administration Simvastatin 40 mg 08/01/20 09:00 08/14/20 09:26 Simvastatin 20 Mg Tablet PO 40 mg DAILY [facility] Administration Radiology Results: ITS Impressions Lumbar Spine X-Ray 08/13/20 08:56 IMPRESSION: 1. Severe lumbar spondylosis. 2. Posterior fusion procedu
[2020-08-14] MEDS: LATANOPROST 0.005% OP SOLN 2.5 ML BTL 1 DROP EACH EYE (20:02)
[2020-08-14] MEDS: POLYSACCHARIDE IRON COMPLEX 150 MG CAPSULE PO (20:02)
[2020-08-14] MEDS: CYCLOBENZAPRINE HCL 10 MG TABLET PO (20:02)
[2020-08-14 20:46] VITALS: BP 84/47; PULSE 95; RESP 18; TEMP 36.4; O2SAT 96
[2020-08-15] VITALS (11 sets, daily range): BP systolic 74–122; BP diastolic 46–87; PULSE 86–95; RESP 10–18; TEMP 36.3–36.7; O2SAT 96–100
[2020-08-15 06:03] LABS: Basophils Percent Auto 0.2 % (0.2-1.2); Eosinophils Percent Auto 0.1 % (0-4.4); Hematocrit 25.8 % (37.0-47.0); Hemoglobin 8.4 g/dL (12.0-15.0); Immature Granulocyte Absolute 0.86 K/mm3 (0.00-0.031); Immature Granulocyte Percent A 4.8 % (0-0.5); Lymphocytes Absolute Auto 0.72 K/mm3 (0.9-3.2); Mean Corpuscular HGB Conc 32.6 g/dl (32-36); Mean Corpuscular Hemoglobin 30.3 pg (26-34); Mean Corpuscular Volume 93.1 fl (80-100); Mean Platelet Volume 9.9 fl (7.4-10.4); Monocytes Percent Auto 5.8 % (2.6-8.5); Neutrophils Absolute Auto 15.2 K/mm3 (1.3-6.7); Neutrophils Percent Auto 85.1 % (45.5-73.1); Nucleated Red Blood Cells Perc 0.1 % (0.0-0.2); Platelet Count Result 189 k/mm3 (150-375); Red Blood Count 2.77 M/mm3 (4.2-5.4); Red Cell Distribution Width 15.8 % (11.5-14.5); White Blood Count 17.9 K/mm3 (4.5-10.0)
[2020-08-15 06:24] LABS: Anion Gap 3 mmol/L (8-16); Blood Urea Nitrogen 46 mg/dL (7-17); Calcium 8.1 mg/dL (8.4-10.2); Carbon Dioxide 37 mmol/L (22-30); Chloride 93 mmol/L (98-107); Estimated CRCL calculation 40 ml/min; Estimated Glomerular Filt Rate > 60; Glucose 96 mg/dL (65-105); Potassium 3.5 mmol/L (3.4-5.0); Sodium 133 mmol/L (137-145)
[2020-08-15 06:33] LABS: Anisocytosis 1+ (NORMAL); Hypochromasia 1+ (NORMAL); Platelet Estimate Adequate (Adequate)
--- NOTE | 2020-08-15 07:14 | WPDUROPN2 ---
Progress Note: A&P Assessment and Plan (1) Gross hematuria: Code(s): R31.0 - Gross hematuria Status: Acute Assessment and Plan: Proceed with cysto with clot evacuation this morning (2) Carcinoma of urinary bladder neck: Code(s): C67.5 - Malignant neoplasm of bladder neck Status: Acute Additional Plan Metastatic unresectable carcinoma. Managed by medical oncology at this time. Subjective Subjective Date/Time Seen: 08/15/20 07:14 Principal diagnosis: Metastatic bladder carcinoma with gross hematuria and possible clot retenti Interval history: Kayla underwent a CT scan which revealed heterogeneous material in the bladder with displacement of the Haskins catheter. It is unclear whether this is secondary to malignancy versus clots. Given the finding will proceed with cystoscopy with clot evacuation at this time. It appears that she has had unresectable bladder carcinoma in the past. Review of Systems Review of Systems: All systems reviewed & are unremarkable except as noted in HPI and below Objective Data Vital Signs Vital Signs: Vital Signs - 24 hr 08/14/20 09:26 08/14/20 14:00 08/14/20 20:46 Temperature 37.1 C 36.4 C L Pulse Rate 80 68 95 Respiratory Rate 18 18 Blood Pressure 98/60 L 84/47 L Pulse Oximetry 98 96 08/15/20 05:15 Temperature 36.6 C Pulse Rate 95 Respiratory Rate 18 Blood Pressure 98/49 L Pulse Oximetry 97 Intake/Output Intake/Output: Intake & Output 08/12/20 08/13/20 08/14/20 08/15/20 23:59 23:59 23:59 23:59 Intake Total 600 710 480 0 Output Total 350 350 Balance 600 710 130 -350 Meds/Results Medications: Active Medications Generic Name Dose Route Start Last Admin Trade Name Freq PRN Reason Stop Dose Admin Acetaminophen 1,000 mg 07/31/20 17:34 08/13/20 20:56 Acetaminophen 500 Mg Tablet PO 1,000 mg Q6H PRN Administration Pain (Scale Score 1-3) Citalopram Hydrobromide 10 mg 08/11/20 13:55 08/14/20 09:26 Citalopram Hydrobromide 10 Mg Tablet PO 10 mg QAM MORA Administration Cyclobenzaprine HCl 10 mg 07/31/20 21:00 08/14/20 20:02 Cyclobenzaprine Hcl 10 Mg Tablet PO 10 mg HS MORA Administration Docusate Sodium 100 mg 08/03/20 16:34 Docusate Sodium 100 Mg Capsule PO BID PRN Constipation Ceftriaxone Sodium/Dextrose 1 gm in 50 mls @ 100 mls/hr 08/14/20 17:00 08/14/20 18:10 Rocephin 1 Gm/D5w 50 Ml IVPB 100 mls/hr Q24H MORA Administration Latanoprost 1 drop 07/31/20 21:00 08/14/20 20:02 Latanoprost 0.005% Op Soln 2.5 Ml Btl EACH EYE 1 drop HS M[facility]A Administration Metoprolol Succinate 50 mg 08/01/20 09:00 08/14/20 09:26 Metoprolol Succinate Ext Rel 50 Mg Tabcr PO 50 mg DAILY [facility] Administration Oxycodone HCl 10 mg 07/31/20 17:34 08/14/20 07:34 Oxycodone Hcl (*Crx) 5 Mg Tab Ir PO 10 mg Q4H PRN Administration Pain (Scale Score 7-10) Pantoprazole Sodium 40 mg 08/12/20 09:00 08/14/20 09:26 Pantoprazole 40 Mg Tablet PO 40 mg DAILY M[facility]A Administration Polysaccharide Iron Complex 150 mg 08/14/20 21:00 08/14/20 20:02 Polysaccharide Iron Complex 150 Mg Capsule PO 150 mg HS MORA Administration Potassium Chloride 20 meq 08/15/20 08:00 Potassium Chloride 10 Meq Tablet.Er PO DAILY@0800 [facility] Silver Nitrate 1 applic 08/13/20 09:00 08/14/20 09:26 Silvergel (Elta) 45 Ml TOPICAL 1 applic DAILY [facility] Administration Simvastatin 40 mg 08/01/20 09:00 08/14/20 09:26 Simvastatin 20 Mg Tablet PO 40 mg DAILY [facility] Administration Radiology Results: ITS Impressions Lumbar Spine X-Ray 08/13/20 08:56 IMPRESSION: 1. Severe lumbar spondylosis. 2. Posterior fusion procedure from T10 to L2. 3. T12 vertebral body fracture with implant between the T11 and L1 vertebral bodies. Thoracic Spine X-Ray 08/13/20 09:03 IMPRESSION: 1. Age-indeterminate mild compression fracture of T8. 2. T12 fracture with implant between
--- NOTE | 2020-08-15 07:23 | WPDHPUPDATE1 ---
History and Physical Update Update Date/Time: 08/15/20 07:23 History and Physical has been reviewed, including an updated exam of the patient. There are NO changes in the patient's condition. Risks, benefits, and alternatives have been discussed and questions answered. Patient agrees to proceed with procedure.
[2020-08-15] MEDS: METOPROLOL SUCCINATE EXT REL 50 MG TABCR PO (08:19)
--- NOTE | 2020-08-15 08:21 | WPDANESEPPF ---
Anes - Initial Pre Proc Eval Procedure: Operation Date: 08/15/20 10:30 Proposed Procedures p Cystoscopy, Evacuation Bladder Clots - Michel Desir MD Date/Time: 08/15/20 08:21 Surgeon: Wander King MD Pre Op Diagnosis: T12 Patholoigic burst fx Patient Data Age: 74 Gender: F Height: 1.52 m Weight: 66.3 kg Last Vital Signs Temp 36.6 C 08/15/20 05:15 Pulse 95 08/15/20 08:19 Resp 18 08/15/20 05:15 BP 98/49 L 08/15/20 05:15 Pulse Ox 97 08/15/20 05:15 Allergies Allergy/AdvReac Type Severity Reaction Status Date / Time No Known Allergies Allergy Verified 07/31/20 20:44 Home Medications Medication Instructions Recorded Confirmed Type acetaminophen 1,000 mg PO Q6H PRN MDD 4000mg 07/31/20 07/31/20 History alendronate 70 mg PO WEEKLY 07/31/20 07/31/20 History aspirin [Adult Aspirin EC Low 81 mg PO DAILY 07/31/20 07/31/20 History Strength] cholecalciferol (vitamin D3) 25 mcg PO DAILY 07/31/20 07/31/20 History cyanocobalamin (vitamin B-12) 1,000 mcg PO DAILY 07/31/20 07/31/20 History [Vitamin B-12] cyclobenzaprine 10 mg PO HS 07/31/20 07/31/20 History dexamethasone 2 mg PO BID 07/31/20 07/31/20 History dexamethasone 2 mg PO DAILY 07/31/20 07/31/20 History dexamethasone 4 mg PO BID 07/31/20 07/31/20 History docusate sodium 100 mg PO BID 07/31/20 07/31/20 History enoxaparin 30 mg SUBCUT DAILY 07/31/20 07/31/20 History famotidine 20 mg PO DAILY 07/31/20 07/31/20 History hydrochlorothiazide 25 mg PO DAILY 07/31/20 07/31/20 History latanoprost 1 drp OPHTHALMIC (EYE) QPM 07/31/20 07/31/20 History metoprolol succinate 50 mg PO DAILY 07/31/20 07/31/20 History [id number]-FA-vit K 1 tablet PO DAILY 07/31/20 07/31/20 History [Adults Multivitamin] oxycodone 10 mg PO Q4H PRN 07/31/20 07/31/20 History simvastatin 40 mg PO DAILY 07/31/20 07/31/20 History Laboratory Tests 08/14/20 08/14/20 08/15/20 08:04 15:22 05:36 WBC 17.9 K/mm3 H K/mm3 17.9 K/mm3 H K/mm3 (4.5-10.0) (4.5-10.0) RBC 2.76 M/mm3 L M/mm3 2.77 M/mm3 L M/mm3 (4.2-5.4) (4.2-5.4) Hgb 8.5 g/dL L g/dL 8.4 g/dL L g/dL (12.0-15.0) (12.0-15.0) Hct 25.9 % L % 25.8 % L % (37.0-47.0) (37.0-47.0) MCV 93.8 fl D fl 93.1 fl fl (80-100) (80-100) MCH 30.8 pg pg 30.3 pg pg (26-34) (26-34) MCHC 32.8 g/dl g/dl 32.6 g/dl g/dl (32-36) (32-36) RDW 15.9 % H % 15.8 % H % (11.5-14.5) (11.5-14.5) Plt Count 142 k/mm3 L k/mm3 189 k/mm3 k/mm3 (150-375) (150-375) MPV 9.4 fl fl 9.9 fl fl (7.4-10.4) (7.4-10.4) Immature Gran % (Auto) 5.6 % H % 4.8 % H % (0-0.5) (0-0.5) Neut % (Auto) 84.0 % H % 85.1 % H % (45.5-73.1) (45.5-73.1) Lymph % (Auto) 4.4 % L % 4.0 % L % (18.3-44.2) (18.3-44.2) Hawkins % (Auto) 5.7 % % 5.8 % % (2.6-8.5) (2.6-8.5) Eos % (Auto) 0.1 % % 0.1 % % (0-4.4) (0-4.4) Baso % (Auto) 0.2 % % 0.2 % % (0.2-1.2) (0.2-1.2) Lymph # (Auto) 0.79 K/mm3 L K/mm3 0.72 K/mm3 L K/mm3 (0.9-3.2) (0.9-3.2) Hawkins # (Auto) 1.0 K/mm3 H K/mm3 1.0 K/mm3 H K/mm3 (0.1-0.6) (0.1-0.6) Eos # (Auto) 0.0 K/mm3 K/mm3 0.0 K/mm3 K/mm3 (0-0.3) (0-0.3) Baso # (Auto) 0.0 K/mm3 K/mm3 0.0 K/mm3 K/mm3 (0.0-0.1) (0.0-0.1) Abs Immat Gran (auto) 1.01 K/mm3 H K/mm3 0.86 K/mm3 H K/mm3 (0.00-0.031) (0.00-0.031) Absolute Neuts (auto) 15.1 K/mm3 H K/mm3 15.2 K/mm3 H K/mm3 (1.3-6.7) (1.3-6.7) Absolute Nucleated RBC 0.0 K/mm3 K/mm3 0.0 K/mm3 K/mm3 (0.0-0.012) (0.0-0.012) Nucleated RBC % 0.0 % % 0.1 % % (0.0-0.2) (0.0-0.2) Platelet Estimate Adequate (Adequate) Hypochromasia 1+ (NORMAL) Anisocytosis 1+ (NORMAL) Sodium Potassium Chloride Carbon Dioxide Anion Gap BUN Creatinine Estim Creat Yvette
[2020-08-15] MEDS: LIDOCAINE HCL 2% GEL UROJET 10 ML PKG MUCOUS MEM (11:12)
--- NOTE | 2020-08-15 11:14 | P.OP_ITS ---
Procedure Note - Detailed Date of procedure: 08/15/20 Pre-op diagnosis: T12 Patholoigic burst fx Hematuria with clot versus tumor burden Post-op diagnosis: same Procedure performed: Cystoscopy with Haskins catheter placement Description of procedure: Patient is taken the operative suite correctly identified. Once anesthesia was obtained she was placed in dorsal lithotomy position and prepped and draped usual sterile fashion. Prior Haskins catheter was removed. Twenty-two Martiniquais scope was inserted in the bladder. Patient has a large mass encompassing at least 2/3 of the bladder problem in aiding from the dome and lateral wall of the bladder on the left. With the bladder distended there is no evidence of bleeding or clots. Patient had been on aspirin and possibly has a urinary tract infection. She has had a prior resection which was unresectable at that time by Dr. Lomas. She has known metastatic disease and is being followed by medical oncology. Given the lack of bleeding we decided to simply replaced a Haskins with a [address] with 10 cc. This was connected to continuous bladder irrigation. She is taken recovery stable condition. She may require resection in the future if she develops hematuria. At this point time her prognosis is extremely poor. Anesthesia: GLMA Surgeon: Michel Desir MD Drains: Yes Packing: No Pathology: none sent Complications: No immediate complications Condition: stable Disposition: PACU
[2020-08-15] MEDS: LACTATED RINGERS 1,000 ML 30 ML IV CONT (11:25)
--- NOTE | 2020-08-15 14:22 | PM.IMCN ---
Assessment and Plan Assessment and plan (1) Widespread metastatic malignant neoplastic disease: Code(s): C80.0 - Disseminated malignant neoplasm, unspecified Status: Acute Assessment and Plan: Under oncology services (2) Hypertension: Code(s): I10 - Essential (primary) hypertension Status: Chronic Assessment and Plan: Continue Bp medications metoprolol (3) Gross hematuria: Code(s): R31.0 - Gross hematuria Status: Acute Assessment and Plan: Resolved with cystoscopy and CBI urology rounding, likely secondary to bladder cancer (4) Depression: Code(s): F32.9 - Major depressive disorder, single episode, unspecified Status: Chronic (5) Vitamin D deficiency: Code(s): E55.9 - Vitamin D deficiency, unspecified Status: Acute (6) Pathological fracture: Code(s): M84.40XA - Pathological fracture, unspecified site, initial encounter for fracture Status: Acute Assessment and Plan: Pain relief (7) Spinal cord stimulator dysfunction: Code(s): T85.192A - Other mechanical complication of implanted electronic neurostimulator of spinal cord electrode (lead), initial encounter Status: Acute Assessment and Plan: Insitu (8) UTI (urinary tract infection): Code(s): N39.0 - Urinary tract infection, site not specified Status: Acute Assessment and Plan: Follow UC pt is on iv rocephin presently. HPI Data of Consult Consult date: 08/15/20 Requesting Physician: Wander King MD Primary Care Provider: [facility], Consult Narrative Narrative: 74 year old female who is in [facility] recovering from a T12 pathologic fracture was in [place] last week. Here with hematuria, pt currently in rehab unit. Pt seen by urology, pt had cystoscopy today, pt had history of metastatic bladder cancer in the past. CT scan shows clots v malignancy in bladder. Cystoscopy shows malignancy. Pt is on CBI currently doing well, no further haematuria, urine is straw colored. Pt is on chemo and radiation for disseminated widespread cancer under oncology services. T12 fracture causing some numbness in her legs pt is currently here for rehab. Review of Systems Review of Systems: All systems reviewed & are unremarkable except as noted in HPI and below PMFSH Past Medical History Medical History (Updated 08/15/20 @ 14:55 by Keena Mahmood MD) Glaucoma Hypertension Widespread metastatic malignant neoplastic disease bladder cancer, started chemo 06/2020 radiation Surgical History Surgical History History of spinal surgery Family History Family History Father Colon cancer Social History Social History Smoking packs per day: 1 Smoking cigarettes per day: 20.0 Years smoked: 56 Smoking pack-years: 56.00 Smoking status: Former smoker Tobacco type: cigarettes Alcohol intake: former Substance use: former Spiritual care concerns: No Meds Home Medications and Allergies Home Medications Medication Instructions Recorded Confirmed Type acetaminophen 1,000 mg PO Q6H PRN MDD 4000mg 07/31/20 07/31/20 History alendronate 70 mg PO WEEKLY 07/31/20 07/31/20 History aspirin [Adult Aspirin EC Low 81 mg PO DAILY 07/31/20 07/31/20 History Strength] cholecalciferol (vitamin D3) 25 mcg PO DAILY 07/31/20 07/31/20 History cyanocobalamin (vitamin B-12) 1,000 mcg PO DAILY 07/31/20 07/31/20 History [Vitamin B-12] cyclobenzaprine 10 mg PO HS 07/31/20 07/31/20 History dexamethasone 2 mg PO BID 07/31/20 07/31/20 History dexamethasone 2 mg PO DAILY 07/31/20 07/31/20 History dexamethasone 4 mg PO BID 07/31/20 07/31/20 History docusate sodium 100 mg PO BID 07/31/20 07/31/20 History enoxaparin 30 mg SUBCUT DAILY 07/31/20 07/31/20 History
[2020-08-15] MEDS: POTASSIUM CHLORIDE 10 MEQ TABLET.ER 20 MEQ PO (15:00)
[2020-08-15] MEDS: PANTOPRAZOLE 40 MG TABLET PO (15:00)
[2020-08-15] MEDS: CITALOPRAM HYDROBROMIDE 10 MG TABLET PO (15:00)
[2020-08-15] MEDS: SIMVASTATIN 20 MG TABLET 40 MG PO (15:00)
[2020-08-15] MEDS: SILVERGEL (ELTA) 45 ML 1 APPLIC TOPICAL (16:00)
[2020-08-15] MEDS: LATANOPROST 0.005% OP SOLN 2.5 ML BTL 1 DROP EACH EYE (20:55)
[2020-08-15] MEDS: CYCLOBENZAPRINE HCL 10 MG TABLET PO (20:55)
[2020-08-15] MEDS: POLYSACCHARIDE IRON COMPLEX 150 MG CAPSULE PO (20:55)
[2020-08-16 06:00] VITALS: BP 90/59; PULSE 90; RESP 12; TEMP 36.3; O2SAT 97
--- NOTE | 2020-08-16 07:41 | WPDUROPN2 ---
Progress Note: A&P Assessment and Plan (1) Widespread metastatic malignant neoplastic disease: Code(s): C80.0 - Disseminated malignant neoplasm, unspecified Status: Acute Assessment and Plan: Managed by Medical Oncology. (2) Gross hematuria: Code(s): R31.0 - Gross hematuria Status: Acute Assessment and Plan: Resolved at this time but may become more of an issue as time goes on. Would recommend Haskins be discharged home with Haskins catheter with monthly catheter changes. If hematuria started to recur becomes major issue then maybe will need we resection of some tumor in the bladder. Again this tumor a compass is approximately 1/2 to 2/3 of bladder and is unresectable for cure. Subjective Subjective Date/Time Seen: 08/16/20 07:41 Post Op day: 1 Principal diagnosis: Metastatic bladder carcinoma with unresectable primary Interval history: Urine is fairly clear with very minimal CBI. Does have some right lower hip pain which is unchanged from prior Review of Systems Review of Systems: All systems reviewed & are unremarkable except as noted in HPI and below Objective Data Vital Signs Vital Signs: Vital Signs - 24 hr 08/15/20 08:19 08/15/20 08:50 08/15/20 09:25 Temperature 36.6 C Pulse Rate 95 88 Respiratory Rate 16 Blood Pressure 74/54 L Pulse Oximetry 96 96 08/15/20 11:25 08/15/20 11:30 08/15/20 11:45 Temperature 36.5 C Pulse Rate 91 94 91 Respiratory Rate 10 L 12 16 Blood Pressure 114/53 L 93/46 L 103/70 Pulse Oximetry 100 100 100 08/15/20 12:00 08/15/20 13:31 08/15/20 14:00 Temperature 36.6 C 36.7 C Pulse Rate 94 91 86 Respiratory Rate 15 18 18 Blood Pressure 103/70 117/87 122/76 Pulse Oximetry 100 97 97 08/15/20 22:00 08/16/20 06:00 Temperature 36.3 C L 36.3 C L Pulse Rate 91 90 Respiratory Rate 12 12 Blood Pressure 80/51 L 90/59 L Pulse Oximetry 97 97 Intake/Output Intake/Output: Intake & Output 08/13/20 08/14/20 08/15/20 08/16/20 23:59 23:59 23:59 23:59 Intake Total 581 462 5904 275 Output Total 350 2050 700 Balance 710 180 -760 -425 Meds/Results Medications: Active Medications Generic Name Dose Route Start Last Admin Trade Name Freq PRN Reason Stop Dose Admin Acetaminophen 1,000 mg 07/31/20 17:34 08/13/20 20:56 Acetaminophen 500 Mg Tablet PO 1,000 mg Q6H PRN Administration Pain (Scale Score 1-3) Citalopram Hydrobromide 10 mg 08/11/20 13:55 08/15/20 15:00 Citalopram Hydrobromide 10 Mg Tablet PO 10 mg QAM MORA Administration Cyclobenzaprine HCl 10 mg 07/31/20 21:00 08/15/20 20:55 Cyclobenzaprine Hcl 10 Mg Tablet PO 10 mg HS MORA Administration Docusate Sodium 100 mg 08/03/20 16:34 Docusate Sodium 100 Mg Capsule PO BID PRN Constipation Ceftazidime 2 gm in 50 mls @ 100 mls/hr 08/16/20 00:20 08/16/20 01:30 Fortaz 2 Gm/D5w 50 Ml IVPB Infused 0000,1200 [facility] Infusion Latanoprost 1 drop 07/31/20 21:00 08/15/20 20:55 Latanoprost 0.005% Op Soln 2.5 Ml Btl EACH EYE 1 drop HS MORA Administration Metoprolol Succinate 50 mg 08/01/20 09:00 08/15/20 08:19 Metoprolol Succinate Ext Rel 50 Mg Tabcr PO 50 mg DAILY M[facility]A Administration Oxycodone HCl 10 mg 07/31/20 17:34 08/14/20 07:34 Oxycodone Hcl (*Crx) 5 Mg Tab Ir PO 10 mg Q4H PRN Administration Pain (Scale Score 7-10) Pantoprazole Sodium 40 mg 08/12/20 09:00 08/15/20 15:00 Pantoprazole 40 Mg Tablet PO 40 mg DAILY MORA Administration Polysaccharide Iron Complex 150 mg 08/14/20 21:00 08/15/20 20:55 Polysaccharide Iron Complex 150 Mg Capsule PO 150 mg HS M[facility]A Administration Potassium Chloride 20 meq 08/15/20 08:00 08/15/20 15:00 Potassium Chloride 10 Meq Tablet.Er PO 20 meq DAILY@0800 M[facility]A Administration Silver Nitrate 1 applic 08/13/20 09:00 08/15/20 16:00 Silvergel (Elta) 45 Ml TOPICAL 1 applic DAILY [facility] Administration Simvastatin 40 mg 08/01
--- NOTE | 2020-08-16 08:32 | PCPTNOTE ---
Patient refused treatment this session. Pt stated she just got her pain to subside and does not want it to flare up again. Explained the importance of therapy to the Pt. Pt stated I had surgery yesterday and got horrible news. I just don't want to do anything. Maybe this afternoon, but not right now.
[2020-08-16 09:12] VITALS: PULSE 90
[2020-08-16] MEDS: SIMVASTATIN 20 MG TABLET 40 MG PO (09:12)
[2020-08-16] MEDS: POTASSIUM CHLORIDE 10 MEQ TABLET.ER 20 MEQ PO (09:12)
[2020-08-16] MEDS: METOPROLOL SUCCINATE EXT REL 50 MG TABCR PO (09:12)
[2020-08-16] MEDS: CITALOPRAM HYDROBROMIDE 10 MG TABLET PO (09:12)
[2020-08-16] MEDS: PANTOPRAZOLE 40 MG TABLET PO (09:12)
[2020-08-16] MEDS: SILVERGEL (ELTA) 45 ML 1 APPLIC TOPICAL (09:12)
[2020-08-16] MEDS: ACETAMINOPHEN 500 MG TABLET 1000 MG PO (09:13)
--- NOTE | 2020-08-16 13:21 | WPDNEURORHBP ---
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 kezia phillip who is an oncologist and she is not a candidate for cystectomy T12 surgery has been contributing to her retention as well as the paraparesis in addition to the retention. Urologist proceeded with cystoscopy and clot evacuation. Patient does have resectable bladder carcinoma in the past on cystoscope they found a large mass and Jackson passing at least 2/3 of the bladder per but there was no evidence of bleeding or clots this simply place the Haskins's with the intention that she might require resection in the future if she develops hematuria patient has been followed by the hospital as well for the widespread metastatic malignant neoplastic disease. She will be discharged with the catheter urine has become clear she does complain of right lower hip pain which is unchanged from previous evaluation Review of Systems Review of Systems: All systems reviewed & are unremarkable except as noted in HPI and below Functional Status Ambulation Ability Ability to Ambulate 10 Feet: Total Assistance X 1 Ambulation Assistive Devices: Mechanical Lift Exam Narrative: Exam Narrative: on examination she continues to be awake alert cooperative in fairly good mood with normal speech without evidence of dysphagia or dysarthria. The cranial nerve examination is normal motor examination reveals her to have no drift of 1 or other side in the upper extremity but the lower extremities are obviously paraparetic with brisk reflexes at the knee and questionably upgoing plantar responses edema is definitely decreasing in the lower extremities heart is regular lungs clear abdomen is soft nontender Objective Data Vital Signs Vital Signs: Vital Signs - 24 hr 08/15/20 13:31 08/15/20 14:00 08/15/20 22:00 Temperature 36.6 C 36.7 C 36.3 C L Pulse Rate 91 86 91 Respiratory Rate 18 18 12 Blood Pressure 117/87 122/76 80/51 L Pulse Oximetry 97 97 97 08/16/20 06:00 08/16/20 09:12 Temperature 36.3 C L Pulse Rate 90 90 Respiratory Rate 12 Blood Pressure 90/59 L Pulse Oximetry 97 Intake/Output Intake/Output: Intake & Output 08/13/20 08/14/20 08/15/2008/16/20 23:59 23:59 23:59 23:59 Intake Total 076 029 7184 515 Output Total 350 7780 700 Balance 710 881 -418 -899 Meds/Results Medications: Active Medications Generic Name Dose Route Start Last Admin Trade Name Freq PRN Reason Stop Dose Admin Acetaminophen 1,000 mg 07/31/20 17:34 08/16/20 09:13 Acetaminophen 500 Mg Tablet PO 1,000 mg Q6H PRN Administration Pain (Scale Score 1-3) Citalopram Hydrobromide 10 mg 08/11/20 13:55 08/16/20 09:12 Citalopram Hydrobromide 10 Mg Tablet PO 10 mg QAM MORA Administration Cyclobenzaprine HCl 10 mg 07/31/20 21:00 08/15/20 20:55 Cyclobenzaprine Hcl 10 Mg Tablet PO 10 mg HS MORA Administration Docusate Sodium 100 mg 08/03/20 16:34 Docusate Sodium 100 Mg Capsule PO BID PRN Constipation Ceftazidime 2 gm in 50 mls @ 100 mls/hr 08/16/20 00:20 08/16/20 12:55 Fortaz 2 Gm/D5w 50 Ml IVPB 100 mls/hr 0000,1200 [facility] Infusion Latanoprost 1 drop 07/31/20 21:00 08/15/20 20:55 Latanoprost 0.005% Op Soln 2.5 Ml Btl EACH EYE 1 drop HS [facility] Administration Metoprolol Succinate 50 mg 08/01/20 09:00 08/16/20 09:12 Metoprolol Succinate Ext Rel 50 Mg Tabcr PO 50 mg DAILY M[facility] Administration Oxycodone HCl 10 mg 07/31/20 17:34 08/14/20 07:34 Oxycodone Hcl (*Crx) 5 Mg Tab Ir PO 10 mg Q4H PRN Administration Pain (Scale Score 7-10) Pantoprazole Sodium 40 mg 08/12/20 09:00 08/16/20 09:12 Pantoprazole 40 Mg Tablet PO
[2020-08-16 14:00] VITALS: BP 83/49; PULSE 83; RESP 20; TEMP 36.6; O2SAT 98
[2020-08-16] MEDS: oxyCODONE HCL (*CRX) 5 MG TAB IR 10 MG PO (14:08)
--- NOTE | 2020-08-16 14:25 | PC.NURSE ---
Patient complaining of lower abdominal pain, peterson cath has less than 100cc's output of reddish urine, called Dr. Osorio (auto air conditioning mechanic for Dr. Desir) orders re'cd to restart continuous bladder irrigation to run at a rate to what goes in is coming out clear.. Will continue to monitor
[2020-08-16] MEDS: BISACODYL 10 MG SUPPOSITORY RECTAL (15:12)
--- NOTE | 2020-08-16 15:21 | PM.IMPN ---
Progress Note: A&P Assessment and Plan (1) Widespread metastatic malignant neoplastic disease: Code(s): C80.0 - Disseminated malignant neoplasm, unspecified Status: Acute Assessment and Plan: Under oncology services 08/16/20 15:21 Narrative: 74 year old female who is in [facility] recovering from a T12 pathologic fracture was in [place] last week. Here with hematuria, pt currently in rehab unit. Pt seen by urology, pt had cystoscopy today, pt had history of metastatic bladder cancer in the past. CT scan shows clots v malignancy in bladder. Cystoscopy shows malignancy. Pt is on CBI currently doing well, no further haematuria, urine is straw colored. Pt is on chemo and radiation for disseminated widespread cancer under oncology services. T12 fracture causing some numbness in her legs pt is currently here for rehab. Today patient was seen by her urologist hematuria has resolved however recommending to continue Haskins catheter and may discharge with Haskins catheter in replace it once a month, patient with bladder tumor which encampass close to 2/3 of the or bladder any disease unresectable for cure, patient urine culture is growing Pseudomonas sensitive to Ceftazidime, being treated will continue, patient is feeling better, pain is controlled been participating in physical therapy will continue to monitor the patient (2) Hypertension: Code(s): I10 - Essential (primary) hypertension Status: Chronic Assessment and Plan: Continue Bp medications metoprolol (3) Gross hematuria: Code(s): R31.0 - Gross hematuria Status: Acute Assessment and Plan: Resolved with cystoscopy and CBI urology rounding, likely secondary to bladder cancer (4) Depression: Code(s): F32.9 - Major depressive disorder, single episode, unspecified Status: Chronic (5) Vitamin D deficiency: Code(s): E55.9 - Vitamin D deficiency, unspecified Status: Acute (6) Pathological fracture: Code(s): M84.40XA - Pathological fracture, unspecified site, initial encounter for fracture Status: Acute Assessment and Plan: Pain relief (7) Spinal cord stimulator dysfunction: Code(s): T85.192A - Other mechanical complication of implanted electronic neurostimulator of spinal cord electrode (lead), initial encounter Status: Acute Assessment and Plan: Insitu (8) UTI (urinary tract infection): Code(s): N39.0 - Urinary tract infection, site not specified Status: Acute Assessment and Plan: Follow UC pt is on iv rocephin presently. Subjective Date/time seen: 08/16/20 15:21 Narrative: 74 year old female who is in [facility] recovering from a T12 pathologic fracture was in [place] last week. Here with hematuria, pt currently in rehab unit. Pt seen by urology, pt had cystoscopy today, pt had history of metastatic bladder cancer in the past. CT scan shows clots v malignancy in bladder. Cystoscopy shows malignancy. Pt is on CBI currently doing well, no further haematuria, urine is straw colored. Pt is on chemo and radiation for disseminated widespread cancer under oncology services. T12 fracture causing some numbness in her legs pt is currently here for rehab. Today patient was seen by her urologist hematuria has resolved however recommending to continue Haskins catheter and may discharge with Haskins catheter in replace it once a month, patient with bladder tumor which encampass close to 2/3 of the or bladder any disease unresectable for cure, patient urine culture is growing Pseudomonas sensitive to Ceftazidime, being treated will continue, patient is feeling better, pain is controlled been participating in physical therapy will continue to monitor the patient Review of Systems Review of Systems: All systems reviewed & are unremarkable except as noted in HPI and below Exam Narrative: Exam Narrative: Elderly frail Patient is comfortable, NAD HEENT: eyes are clear and none ic
[2020-08-16 20:00] VITALS: PULSE 82; RESP 18; O2SAT 95
[2020-08-16] MEDS: CYCLOBENZAPRINE HCL 10 MG TABLET PO (20:13)
[2020-08-16] MEDS: POLYSACCHARIDE IRON COMPLEX 150 MG CAPSULE PO (20:13)
[2020-08-16] MEDS: LATANOPROST 0.005% OP SOLN 2.5 ML BTL 1 DROP EACH EYE (20:13)
[2020-08-16 22:00] VITALS: BP 85/48; PULSE 82; RESP 18; TEMP 36.1; O2SAT 95
[2020-08-17 04:43] VITALS: BP 87/62; PULSE 98; RESP 18; TEMP 36; O2SAT 98
[2020-08-17] MEDS: PANTOPRAZOLE 40 MG TABLET PO (08:49)
[2020-08-17] MEDS: SILVERGEL (ELTA) 45 ML 1 APPLIC TOPICAL (08:49)
[2020-08-17 08:50] VITALS: PULSE 98
[2020-08-17] MEDS: CITALOPRAM HYDROBROMIDE 10 MG TABLET PO (08:50)
--- NOTE | 2020-08-17 13:23 | PC.NURSE ---
pt refused potassium, metoprolol and zocor this morning. notified.
[2020-08-17 14:00] VITALS: BP 86/48; PULSE 96; RESP 20; TEMP 37.2; O2SAT 98
--- NOTE | 2020-08-17 15:39 | PM.IMPN ---
Progress Note: A&P Assessment and Plan (1) Widespread metastatic malignant neoplastic disease: Code(s): C80.0 - Disseminated malignant neoplasm, unspecified Status: Acute Assessment and Plan: Under oncology services 08/17/20 15:39 Narrative: 74 year old female who is in [facility] recovering from a T12 pathologic fracture was in [place] last week. Here with hematuria, pt currently in rehab unit. Pt seen by urology, pt had cystoscopy today, pt had history of metastatic bladder cancer in the past. CT scan shows clots v malignancy in bladder. Cystoscopy shows malignancy. Pt is on CBI currently doing well, no further haematuria, urine is straw colored. Pt is on chemo and radiation for disseminated widespread cancer under oncology services. T12 fracture causing some numbness in her legs pt is currently here for rehab. on 08/16 patient was seen by her urologist,hematuria has resolved however recommending to continue Haskins catheter and may discharge with Haskins catheter and replace it once a month, patient with bladder tumor which encampass close to 2/3 of her bladder and it is unresectable for cure, patient urine culture is growing Pseudomonas sensitive to Ceftazidime, being treated will continue for total of 7 days, patient is feeling better, pain is controlled been participating in physical therapy will continue to monitor the patient (2) Hypertension: Code(s): I10 - Essential (primary) hypertension Status: Chronic Assessment and Plan: Continue Bp medications metoprolol (3) Gross hematuria: Code(s): R31.0 - Gross hematuria Status: Acute Assessment and Plan: Resolved with cystoscopy and CBI urology rounding, likely secondary to bladder cancer (4) Depression: Code(s): F32.9 - Major depressive disorder, single episode, unspecified Status: Chronic (5) Vitamin D deficiency: Code(s): E55.9 - Vitamin D deficiency, unspecified Status: Acute (6) Pathological fracture: Code(s): M84.40XA - Pathological fracture, unspecified site, initial encounter for fracture Status: Acute Assessment and Plan: Pain relief (7) Spinal cord stimulator dysfunction: Code(s): T85.192A - Other mechanical complication of implanted electronic neurostimulator of spinal cord electrode (lead), initial encounter Status: Acute Assessment and Plan: Insitu (8) UTI (urinary tract infection): Code(s): N39.0 - Urinary tract infection, site not specified Status: Acute Assessment and Plan: Follow UC pt is on iv rocephin presently. Subjective Date/time seen: 08/17/20 15:39 Narrative: 74 year old female who is in [facility] recovering from a T12 pathologic fracture was in [place] last week. Here with hematuria, pt currently in rehab unit. Pt seen by urology, pt had cystoscopy today, pt had history of metastatic bladder cancer in the past. CT scan shows clots v malignancy in bladder. Cystoscopy shows malignancy. Pt is on CBI currently doing well, no further haematuria, urine is straw colored. Pt is on chemo and radiation for disseminated widespread cancer under oncology services. T12 fracture causing some numbness in her legs pt is currently here for rehab. on 08/16 patient was seen by her urologist,hematuria has resolved however recommending to continue Haskins catheter and may discharge with Haskins catheter and replace it once a month, patient with bladder tumor which encampass close to 2/3 of her bladder and it is unresectable for cure, patient urine culture is growing Pseudomonas sensitive to Ceftazidime, being treated will continue for total of 7 days, patient is feeling better, pain is controlled been participating in physical therapy will continue to monitor the patient Review of Systems Review of Systems: All systems reviewed & are unremarkable except as noted in HPI and below Exam Narrative: Exam Narrative: Elderly frail Patient is comfortable
[2020-08-17] MEDS: ACETAMINOPHEN 500 MG TABLET 1000 MG PO (18:18)
[2020-08-17] MEDS: CYCLOBENZAPRINE HCL 10 MG TABLET PO (20:44)
[2020-08-17] MEDS: POLYSACCHARIDE IRON COMPLEX 150 MG CAPSULE PO (20:44)
[2020-08-17] MEDS: LATANOPROST 0.005% OP SOLN 2.5 ML BTL 1 DROP EACH EYE (20:44)
[2020-08-17 20:48] VITALS: BP 100/53; PULSE 76; RESP 18; TEMP 36.5; O2SAT 97
[2020-08-18 05:14] LABS: Hematocrit 26.2 % (37.0-47.0); Hemoglobin 8.7 g/dL (12.0-15.0); Mean Corpuscular HGB Conc 33.2 g/dl (32-36); Mean Corpuscular Volume 93.2 fl (80-100); Mean Platelet Volume 9.7 fl (7.4-10.4); Platelet Count Result 226 k/mm3 (150-375); Red Blood Count 2.81 M/mm3 (4.2-5.4); Red Cell Distribution Width 16.3 % (11.5-14.5); White Blood Count 26.4 K/mm3 (4.5-10.0)
[2020-08-18 05:34] VITALS: BP 89/52; PULSE 75; RESP 18; TEMP 36.2; O2SAT 95
[2020-08-18 05:45] LABS: Anion Gap 4 mmol/L (8-16); Blood Urea Nitrogen 71 mg/dL (7-17); Calcium 8.1 mg/dL (8.4-10.2); Carbon Dioxide 33 mmol/L (22-30); Chloride 91 mmol/L (98-107); Estimated CRCL calculation 15 ml/min; Estimated Glomerular Filt Rate 19; Glucose 94 mg/dL (65-105); Potassium 5.3 mmol/L (3.4-5.0); Sodium 128 mmol/L (137-145)
[2020-08-18 05:50] VITALS: BP 88/60
[2020-08-18] MEDS: SODIUM CHLORIDE 0.9% IV 500 ML 50 ML IV CONT (06:13)
[2020-08-18] MEDS: SIMVASTATIN 20 MG TABLET 40 MG PO (08:24)
[2020-08-18] MEDS: PANTOPRAZOLE 40 MG TABLET PO (08:24)
[2020-08-18] MEDS: CITALOPRAM HYDROBROMIDE 10 MG TABLET PO (08:24)
[2020-08-18] MEDS: SILVERGEL (ELTA) 45 ML 1 APPLIC TOPICAL (08:25)
--- NOTE | 2020-08-18 13:01 | PCPTNOTE ---
The patient treatment was not able to be completed on 08-18-2020 due to R.N advised therapist not to see patient due to change in medical status. Patient missed 40 minutes of PT treatment this date. Will plan to continue treatment per plan of care.
--- NOTE | 2020-08-18 13:10 | WPDNEURORHBP ---
Subjective Date/time seen: 08/18/20 13:[age] years old lady has been admitted to the rehab floor for pathological T12 burst fracture with spinal stenosis and paraparesis in addition to the history of widespread metastatic malignant neoplastic disease recently she had hematuria for which cystoscopy was done again documented the cancer which could not be resected but there was no active bleeding at this stage she is concerned about the possibility of going into hospice she will discuss with her and decide Review of Systems Review of Systems: All systems reviewed & are unremarkable except as noted in HPI and below Functional Status Ambulation Ability Ability to Ambulate 10 Feet: Total Assistance X 1 Ambulation Assistive Devices: Mechanical Lift Exam Narrative: Exam Narrative: he remains awake alert cooperative in no obvious acute distress. His speech is not dysphasic no dysarthric nor dysphonic. Ear nose throat examination is normal. Neck is supple. Heart regular with no murmur. Lungs clear with no rhonchi or crepitations. Abdomen is soft nontender normal bowel sounds. Neurological examination reveals her to have normal mental status except some signs of depression treated accordingly. Speech nor dysphasic no dysarthric not dysphonic. Cranial examination is normal. Examination of the upper extremities revealed her to have fairly symmetrical strength with no drift against gravity. Motor exam of the lower extremities with 4/5 strength sluggish reflex is no evidence of gross cerebellar deficit in the upper extremities . Objective Data Vital Signs Vital Signs: Vital Signs - 24 hr 08/17/20 14:00 08/17/20 20:48 08/18/20 05:34 Temperature 37.2 C 36.5 C 36.2 C L Pulse Rate 96 76 75 Respiratory Rate 20 18 18 Blood Pressure 86/48 L 100/53 L 89/52 L Pulse Oximetry 98 97 95 08/18/20 05:50 Temperature Pulse Rate Respiratory Rate Blood Pressure 88/60 L Pulse Oximetry Intake/Output Intake/Output: Intake & Output 08/15/20 08/16/20 08/17/20 08/18/20 23:59 23:59 23:59 23:59 Intake Total 1290 805 820 530 Output Total 1744 4041 2223 400 Balance -575 -607 -2457 130 Meds/Results Medications: Active Medications Generic Name Dose Route Start Last Admin Trade Name Freq PRN Reason Stop Dose Admin Acetaminophen 1,000 mg 07/31/20 17:34 08/17/20 18:18 Acetaminophen 500 Mg Tablet PO 1,000 mg Q6H PRN Administration Pain (Scale Score 1-3) Bisacodyl 10 mg 08/16/20 14:34 08/16/20 15:12 Bisacodyl 10 Mg Suppository RECTAL 10 mg DAILY PRN Administration Constipation Citalopram Hydrobromide 10 mg 08/11/20 13:55 08/18/20 08:24 Citalopram Hydrobromide 10 Mg Tablet PO 10 mg QAM MORA Administration Cyclobenzaprine HCl 10 mg 07/31/20 21:00 08/17/20 20:44 Cyclobenzaprine Hcl 10 Mg Tablet PO 10 mg HS MORA Administration Docusate Sodium 100 mg 08/03/20 16:34 Docusate Sodium 100 Mg Capsule PO BID PRN Constipation Ceftazidime 2 gm in 50 mls @ 100 mls/hr 08/16/20 00:20 08/18/20 11:54 Fortaz 2 Gm/D5w 50 Ml IVPB 100 mls/hr 0000,1200 [facility] Administration Sodium Chloride 500 mls @ 50 mls/hr 08/18/20 05:56 08/18/20 06:13 Normal Saline Iv IV CONT 08/18/20 15:55 50 mls/hr .Q10H ONE Administration Latanoprost 1 drop 07/31/20 21:00 08/17/20 20:44 Latanoprost 0.005% Op Soln 2.5 Ml Btl EACH EYE 1 drop HS MORA Administration Metoprolol Succinate 50 mg 08/18/20 09:00 Metoprolol Succinate Ext Rel 50 Mg Tabcr PO DAILY [facility] Oxycodone HCl 10 mg 07/31/20 17:34 08/16/20 14:08 Oxycodone Hcl (*Crx) 5 Mg Tab Ir PO 10 mg Q4H PRN Administration Pain (Scale Score 7-10) Pantoprazole Sodium 40 mg 08/12/20 09:00 08/18/20 08:24 Pantoprazole 40 Mg Tablet PO 40 mg DAILY MORA Administration Polysaccharide Iron Complex 150 mg 08/14/20 21:00 08/17/20 20:44 Polysaccharide Iron Complex 150 Mg Capsule PO 150 mg HS
--- NOTE | 2020-08-18 13:14 | WPDUROPN2 ---
Progress Note: A&P Assessment and Plan (1) Widespread metastatic malignant neoplastic disease: Code(s): C80.0 - Disseminated malignant neoplasm, unspecified Status: Acute Assessment and Plan: -gross hematuria has Resolved at this time but may become more of an issue as time goes on. Would recommend Haskins be discharged home with Haskins catheter with monthly catheter changes. If hematuria started to recur becomes major issue then maybe will need we resection of some tumor in the bladder. Again this tumor a compass is approximately 1/2 to 2/3 of bladder and is unresectable for cure. -patient with rise in creatinine on blood testing today, consider repeat lab work and if continued elevation upper tract imaging if indicated based code status/goals of care (2) Gross hematuria: Code(s): R31.0 - Gross hematuria Status: Acute Subjective Subjective Date/Time Seen: 08/18/20 13:14 Patient without new complaints today. She states her pain is minimal. Her urine draining clear with very slow CBI. The patient had discussion with her family and hospitalist in regard to code status this morning Review of Systems Review of Systems: All systems reviewed & are unremarkable except as noted in HPI and below Exam Const: General: cooperative and comfortable HENMT: Head: normal to inspection Eyes: General: appearance normal, both eyes and all related structures Resp: Effort & Inspection: normal respiratory effort Urinary Catheter: Urinary Catheter: patent and draining and urine clear Objective Data Vital Signs Vital Signs: Vital Signs - 24 hr 08/17/20 14:00 08/17/20 20:48 08/18/20 05:34 Temperature 37.2 C 36.5 C 36.2 C L Pulse Rate 96 76 75 Respiratory Rate 20 18 18 Blood Pressure 86/48 L 100/53 L 89/52 L Pulse Oximetry 98 97 95 08/18/20 05:50 Temperature Pulse Rate Respiratory Rate Blood Pressure 88/60 L Pulse Oximetry Intake/Output Intake/Output: Intake & Output 08/15/20 08/16/20 08/17/20 08/18/20 23:59 23:59 23:59 23:59 Intake Total 1290 805 820 530 Output Total 2049 0507 3396 400 Balance -236 -683 -3269 130 Meds/Results Medications: Active Medications Generic Name Dose Route Start Last Admin Trade Name Freq PRN Reason Stop Dose Admin Acetaminophen 1,000 mg 07/31/20 17:34 08/17/20 18:18 Acetaminophen 500 Mg Tablet PO 1,000 mg Q6H PRN Administration Pain (Scale Score 1-3) Bisacodyl 10 mg 08/16/20 14:34 08/16/20 15:12 Bisacodyl 10 Mg Suppository RECTAL 10 mg DAILY PRN Administration Constipation Citalopram Hydrobromide 10 mg 08/11/20 13:55 08/18/20 08:24 Citalopram Hydrobromide 10 Mg Tablet PO 10 mg QAM MORA Administration Cyclobenzaprine HCl 10 mg 07/31/20 21:00 08/17/20 20:44 Cyclobenzaprine Hcl 10 Mg Tablet PO 10 mg HS MORA Administration Docusate Sodium 100 mg 08/03/20 16:34 Docusate Sodium 100 Mg Capsule PO BID PRN Constipation Ceftazidime 2 gm in 50 mls @ 100 mls/hr 08/16/20 00:20 08/18/20 11:54 Fortaz 2 Gm/D5w 50 Ml IVPB 100 mls/hr 0000,1200 MORA Administration Sodium Chloride 500 mls @ 50 mls/hr 08/18/20 05:56 08/18/20 06:13 Normal Saline Iv IV CONT 08/18/20 15:55 50 mls/hr .Q10H ONE Administration Latanoprost 1 drop 07/31/20 21:00 08/17/20 20:44 Latanoprost 0.005% Op Soln 2.5 Ml Btl EACH EYE 1 drop HS MORA Administration Metoprolol Succinate 50 mg 08/18/20 09:00 Metoprolol Succinate Ext Rel 50 Mg Tabcr PO DAILY MORA Oxycodone HCl 10 mg 07/31/20 17:34 08/16/20 14:08 Oxycodone Hcl (*Crx) 5 Mg Tab Ir PO 10 mg Q4H PRN Administration Pain (Scale Score 7-10) Pantoprazole Sodium 40 mg 08/12/20 09:00 08/18/20 08:24 Pantoprazole 40 Mg Tablet PO 40 mg DAILY MORA Administration Polysaccharide Iron Complex 150 mg 08/14/20 21:00 12 20:44 Polysaccharide Iron Complex 150 Mg Capsule PO 150 mg HS MORA Administration Pot
--- NOTE | 2020-08-18 13:54 | PM.IMPN ---
Progress Note: A&P Assessment and Plan (1) Widespread metastatic malignant neoplastic disease: Code(s): C80.0 - Disseminated malignant neoplasm, unspecified Status: Acute Assessment and Plan: Under oncology services 08/18/20 13:54 Narrative: 74 year old female who is in [facility] from a T12 pathologic fracture was in [place] last week. Here with hematuria, pt currently in rehab unit. Pt seen by urology, pt had cystoscopy today, pt had history of metastatic bladder cancer in the past. CT scan shows clots v malignancy in bladder. Cystoscopy shows malignancy. Pt is on CBI currently doing well, no further haematuria, urine is straw colored. Pt is on chemo and radiation for disseminated widespread cancer under oncology services. T12 fracture causing some numbness in her legs pt is currently here for rehab. on 08/16 patient was seen by her urologist,hematuria has resolved however recommending to continue Haskins catheter and may discharge with Haskins catheter and replace it once a month, patient with bladder tumor which encampass close to 2/3 of her bladder and it is unresectable for cure, patient urine culture is growing Pseudomonas sensitive to Ceftazidime, 3/ being treated will continue for total of 7 days. Today patient is more pain had a long discussion with patient patient has decided to be DNR and subjective of hospice was brought in by the patient, I have also spoke with the patient Leander and requested to consult hospice for further information and planning, will consult animal care supervisor for hospice and further recommendation to follow (2) Hypertension: Code(s): I10 - Essential (primary) hypertension Status: Chronic Assessment and Plan: Continue Bp medications metoprolol (3) Gross hematuria: Code(s): R31.0 - Gross hematuria Status: Acute Assessment and Plan: Resolved with cystoscopy and CBI urology rounding, likely secondary to bladder cancer (4) Depression: Code(s): F32.9 - Major depressive disorder, single episode, unspecified Status: Chronic (5) Vitamin D deficiency: Code(s): E55.9 - Vitamin D deficiency, unspecified Status: Acute (6) Pathological fracture: Code(s): M84.40XA - Pathological fracture, unspecified site, initial encounter for fracture Status: Acute Assessment and Plan: Pain relief (7) Spinal cord stimulator dysfunction: Code(s): T85.192A - Other mechanical complication of implanted electronic neurostimulator of spinal cord electrode (lead), initial encounter Status: Acute Assessment and Plan: Insitu (8) UTI (urinary tract infection): Code(s): N39.0 - Urinary tract infection, site not specified Status: Acute Assessment and Plan: Follow UC pt is on iv rocephin presently. Subjective Date/time seen: 08/18/20 13:54 Narrative: 74 year old female who is in [facility] recovering from a T12 pathologic fracture was in [place] last week. Here with hematuria, pt currently in rehab unit. Pt seen by urology, pt had cystoscopy today, pt had history of metastatic bladder cancer in the past. CT scan shows clots v malignancy in bladder. Cystoscopy shows malignancy. Pt is on CBI currently doing well, no further haematuria, urine is straw colored. Pt is on chemo and radiation for disseminated widespread cancer under oncology services. T12 fracture causing some numbness in her legs pt is currently here for rehab. on 08/16 patient was seen by her urologist,hematuria has resolved however recommending to continue Haskins catheter and may discharge with Haskins catheter and replace it once a month, patient with bladder tumor which encampass close to 2/3 of her bladder and it is unresectable for cure, patient urine culture is growing Pseudomonas sensitive to Ceftazidime, 3/ being treated will continue for total of 7 days. Today patient is more pain had a long discussion with patient patient has decided t
[2020-08-18 14:00] VITALS: BP 102/70; PULSE 85; RESP 20; TEMP 37.1; O2SAT 99
--- NOTE | 2020-08-18 14:16 | PCOTNOTE ---
Addendum entered by ROMIE Carlisle 08/18/20 14:24: 13:45 - Attempted to see patient this PM for skilled OT session. When asked if patient would like to participate, patient shook head and said, No, I don't really see the point of one more day. I appreciate what all of you guys have done for me, though. Patient received upsetting news this morning about change in medical status. Patient has been calling/talking with family about next steps. Patient refused therapy this date, missing 52 minutes of OT this date. Will continue per Plan of Care. Original Note: 13:45 - Attempted to see patient this PM for skilled OT session. When asked if patient would like to participate, patient shook head and said, No, I don't really see the point of one more day. I appreciate what all of you guys have done for me, though. Patient received upsetting news this morning that there is nothing else that can be done for her condition. Patient has been calling/talking with family about next steps. Patient refused therapy this date.
[2020-08-18] MEDS: POLYSACCHARIDE IRON COMPLEX 150 MG CAPSULE PO (20:03)
[2020-08-18] MEDS: CYCLOBENZAPRINE HCL 10 MG TABLET PO (20:03)
[2020-08-18] MEDS: LATANOPROST 0.005% OP SOLN 2.5 ML BTL 1 DROP EACH EYE (20:03)
[2020-08-18 21:53] VITALS: BP 90/44; PULSE 120; RESP 20; TEMP 36.4; O2SAT 96
[2020-08-18 22:15] VITALS: BP 95/75; PULSE 120; RESP 20; O2SAT 96
[2020-08-18] MEDS: SODIUM CHLORIDE 0.9% IV 1,000 ML 120 ML IV CONT (22:34)
--- NOTE | 2020-08-18 22:35 | PC.NURSE ---
Dr. Buckner called and informed about patients lower blood pressure and high pulse. Order for 1L NS 120CC per hour, this bag only. - [id number]
[2020-08-19] MEDS: oxyCODONE HCL (*CRX) 5 MG TAB IR 10 MG PO ×2 (03:09→12:26)
[2020-08-19 06:00] VITALS: BP 103/71; PULSE 110; RESP 16; TEMP 36.6; O2SAT 97
[2020-08-19 06:04] LABS: Hematocrit 24.8 % (37.0-47.0); Hemoglobin 8.2 g/dL (12.0-15.0); Mean Corpuscular HGB Conc 33.1 g/dl (32-36); Mean Corpuscular Hemoglobin 31.1 pg (26-34); Mean Corpuscular Volume 93.9 fl (80-100); Platelet Count Result 225 k/mm3 (150-375); Red Blood Count 2.64 M/mm3 (4.2-5.4); Red Cell Distribution Width 16.4 % (11.5-14.5)
[2020-08-19 06:30] LABS: Anion Gap 7 mmol/L (8-16); Blood Urea Nitrogen 78 mg/dL (7-17); Calcium 7.7 mg/dL (8.4-10.2); Carbon Dioxide 29 mmol/L (22-30); Chloride 93 mmol/L (98-107); Glucose 91 mg/dL (65-105); Potassium 4.9 mmol/L (3.4-5.0); Sodium 129 mmol/L (137-145)
[2020-08-19 06:34] LABS: Estimated CRCL calculation 15 ml/min; Estimated Glomerular Filt Rate 19
--- NOTE | 2020-08-19 09:40 | PCPTNOTE ---
The patient treatment was not able to be completed on 08-19-2020 due to R.N advised not to see patient due to change in medical status. Will plan to continue treatment per plan of care.
[2020-08-19] MEDS: SILVERGEL (ELTA) 45 ML 1 APPLIC TOPICAL (10:41)
--- NOTE | 2020-08-19 11:43 | PM.DS ---
DS: Admitting Diagnosis Admitting Diagnosis Admitting Diagnosis: Bladder cancer hematuria DS: Discharge Diagnosis Discharge Diagnosis (1) Widespread metastatic malignant neoplastic disease: Code(s): C80.0 - Disseminated malignant neoplasm, unspecified Status: Acute Assessment and Plan: Under oncology services 08/18/20 13:54 Narrative: 74 year old female who is in [facility] recovering from a T12 pathologic fracture was in [place] last week. Here with hematuria, pt currently in rehab unit. Pt seen by urology, pt had cystoscopy today, pt had history of metastatic bladder cancer in the past. CT scan shows clots v malignancy in bladder. Cystoscopy shows malignancy. Pt is on CBI currently doing well, no further haematuria, urine is straw colored. Pt is on chemo and radiation for disseminated widespread cancer under oncology services. T12 fracture causing some numbness in her legs pt is currently here for rehab. on 08/16 patient was seen by her urologist,hematuria has resolved however recommending to continue Haskins catheter and may discharge with Haskins catheter and replace it once a month, patient with bladder tumor which encampass close to 2/3 of her bladder and it is unresectable for cure, patient urine culture is growing Pseudomonas sensitive to Ceftazidime, 3/7 being treated will continue for total of 7 days. Today patient is more pain had a long discussion with patient patient has decided to be DNR and subjective of hospice was brought in by the patient, I have also spoke with the patient Leander and requested to consult hospice for further information and planning, will consult caregiver assisted living for hospice and further recommendation to follow (2) Hypertension: Code(s): I10 - Essential (primary) hypertension Status: Chronic Assessment and Plan: Continue Bp medications metoprolol (3) Gross hematuria: Code(s): R31.0 - Gross hematuria Status: Acute Assessment and Plan: Resolved with cystoscopy and CBI urology rounding, likely secondary to bladder cancer (4) Depression: Code(s): F32.9 - Major depressive disorder, single episode, unspecified Status: Chronic (5) Vitamin D deficiency: Code(s): E55.9 - Vitamin D deficiency, unspecified Status: Acute (6) Pathological fracture: Code(s): M84.40XA - Pathological fracture, unspecified site, initial encounter for fracture Status: Acute Assessment and Plan: Pain relief (7) Spinal cord stimulator dysfunction: Code(s): T85.192A - Other mechanical complication of implanted electronic neurostimulator of spinal cord electrode (lead), initial encounter Status: Acute Assessment and Plan: Insitu (8) UTI (urinary tract infection): Code(s): N39.0 - Urinary tract infection, site not specified Status: Acute Assessment and Plan: Follow UC pt is on iv rocephin presently. DS: Summary Hospital Course Reason for hospitalization: Narrative: 74 year old female who is in [facility] recovering from a T12 pathologic fracture was in [place] last week. Here with hematuria, pt currently in rehab unit. Pt seen by urology, pt had cystoscopy today, pt had history of metastatic bladder cancer in the past. CT scan shows clots v malignancy in bladder. Cystoscopy shows malignancy. Pt is on CBI currently doing well, no further haematuria, urine is straw colored. Pt is on chemo and radiation for disseminated widespread cancer under oncology services. T12 fracture causing some numbness in her legs pt is currently here for rehab. Hospital Course: Narrative: 74 year old female who is in [facility] recovering from a T12 pathologic fracture was in [place] last week. Here with hematuria, pt currently in rehab unit. Pt seen by urology, pt had cystoscopy today, pt had history of metastatic bladder cancer in the past. CT scan shows clots v malignancy in bladder. Cystoscopy shows malignancy. Pt is on CBI currently doing
--- NOTE | 2020-08-19 12:45 | PC.NURSE ---
seen by Dr. Schumacher this AM, Orders were put in for hospice care and patient will discharge home today. [facility] hospice will cover. is aware and care coordination has been talking to him and to hospice. Bambi is having some pain but has not requested pain meds until 1230, given oxycodone at that time and has been resting with eyes closed and no outward signs of pain. Appetite poor today.
[2020-08-19 14:00] VITALS: BP 83/50; PULSE 117; RESP 22; TEMP 36.3; O2SAT 96
--- NOTE | 2020-08-19 14:39 | WPDUROPN2 ---
Progress Note: A&P Assessment and Plan (1) Widespread metastatic malignant neoplastic disease: Code(s): C80.0 - Disseminated malignant neoplasm, unspecified Status: Acute Assessment and Plan: -patient to be discharged home with hospice care - Urine now clear with Haskins to gravity - Would recommend Haskins be discharged home with Haskins catheter with monthly catheter changes. Patient can have irrigation at home as needed by hospice staff -will sign off please call with any further questions or concerns Subjective Subjective Date/Time Seen: 08/19/20 14:39 -patient to be discharged home on hospice Exam Const: General: comfortable Eyes: General: appearance normal, both eyes and all related structures Resp: Effort & Inspection: normal respiratory effort Objective Data Vital Signs Vital Signs: Vital Signs - 24 hr 08/18/20 21:53 08/18/20 22:15 08/19/20 06:00 Temperature 36.4 C 36.6 C Pulse Rate 120 H 120 H 110 H Respiratory Rate 20 20 16 Blood Pressure 90/44 L 95/75 L 103/71 Pulse Oximetry 96 96 97 Intake/Output Intake/Output: Intake & Output 08/16/20 08/17/20 08/18/20 08/19/20 23:59 23:59 23:59 23:59 Intake Total 805 194 5062 1920 Output Total 1725 2525 1300 1825 Balance -920 -1758 620 95 Meds/Results Medications: Active Medications Generic Name Dose Route Start Last Admin Trade Name Freq PRN Reason Stop Dose Admin Acetaminophen 1,000 mg 07/31/20 17:34 08/17/20 18:18 Acetaminophen 500 Mg Tablet PO 1,000 mg Q6H PRN Administration Pain (Scale Score 1-3) Bisacodyl 10 mg 08/16/20 14:34 08/16/20 15:12 Bisacodyl 10 Mg Suppository RECTAL 10 mg DAILY PRN Administration Constipation Citalopram Hydrobromide 10 mg 08/11/20 13:55 08/19/20 10:41 Citalopram Hydrobromide 10 Mg Tablet PO Not Given QAM MORA Cyclobenzaprine HCl 10 mg 07/31/20 21:00 08/18/20 20:03 Cyclobenzaprine Hcl 10 Mg Tablet PO 10 mg HS MORA Administration Docusate Sodium 100 mg 08/03/20 16:34 Docusate Sodium 100 Mg Capsule PO BID PRN Constipation Ceftazidime 1 gm in 50 mls @ 100 mls/hr 08/19/20 22:00 Fortaz 1 Gm/D5w 50 Ml IVPB Q24H MORA Latanoprost 1 drop 07/31/20 21:00 08/18/20 20:03 Latanoprost 0.005% Op Soln 2.5 Ml Btl EACH EYE 1 drop HS MORA Administration Metoprolol Succinate 50 mg 08/18/20 09:00 Metoprolol Succinate Ext Rel 50 Mg Tabcr PO DAILY MORA Oxycodone HCl 10 mg 07/31/20 17:34 08/19/20 12:26 Oxycodone Hcl (*Crx) 5 Mg Tab Ir PO 10 mg Q4H PRN Administration Pain (Scale Score 7-10) Pantoprazole Sodium 40 mg 08/12/20 09:00 08/19/20 10:41 Pantoprazole 40 Mg Tablet PO Not Given DAILY [facility] Polysaccharide Iron Complex 150 mg 08/14/20 21:00 08/18/20 20:03 Polysaccharide Iron Complex 150 Mg Capsule PO 150 mg HS MORA Administration Potassium Chloride 20 meq 08/15/20 08:00 08/19/20 10:41 Potassium Chloride 10 Meq Tablet.Er PO Not Given DAILY@0800 MORA Silver Nitrate 1 applic 08/13/20 09:00 08/19/20 10:41 Silvergel (Elta) 45 Ml TOPICAL 1 applic DAILY MORA Administration Simvastatin 40 mg 08/01/20 09:00 08/19/20 10:41 Simvastatin 20 Mg Tablet PO Not Given DAILY [facility] Radiology Results: ITS Impressions Lumbar Spine X-Ray 08/13/20 08:56 IMPRESSION: 1. Severe lumbar spondylosis. 2. Posterior fusion procedure from T10 to L2. 3. T12 vertebral body fracture with implant between the T11 and L1 vertebral bodies. Thoracic Spine X-Ray 08/13/20 09:03 IMPRESSION: 1. Age-indeterminate mild compression fracture of T8. 2. T12 fracture with implant between the T11 and L1 endplates. 3. Posterior fusion procedure from T10 to L2. 4. Severe mid thoracic spondylosis. 5. Thoracic dextroscoliosis. Abdomen X-Ray 08/14/20 08:43 IMPRESSION: 1. Nonobstructive bowel gas pattern. 2. Airspace opacities at left lung lower lobe, consistent with atelectasis v
--- NOTE | 2020-08-22 15:49 | PM.DS ---
DS: Admitting Diagnosis Admitting Diagnosis Admitting Diagnosis: patient was discharged to home with arrangement for the hospice DS: Summary Hospital Course Hospital Course: Patient had no significant change in her position because of the metastatic disease and decided to go on hospice Time Spent with Patient Time attestation: Total time spent providing and/or coordinating discharge services:ADMISSION FUNCTION:ADMISSION FUNCTION: 74 years old lady admitted to the rehab floor with primary rehab impairment category of spinal cord dysfunction that is nontraumatic in nature and etiological diagnosis of T12 pathological burst fracture with severe spinal stenosis and mild cord signal abnormalities. In addition to the history of 1. Hypertension 2. Hearing loss 3. Glaucoma 4. Bladder cancer 5. Bone metastatic disease 6. Multiple subcutaneous lesion and 7. History of TURP on April 09, 2020 radiation treatment and also with ongoing complain of numbness from the waist down to her feet. During the hospitalization her course was rather complicated because of ongoing complaints of swelling of the lower extremities with subsequently subsided with the treatment, ongoing difficulties with the bladder requiring the urology consultation though she was known to have bladder cancer but during the treatment here she was developing hematuria cystoscopy was carried out and she was not found to have any ruptured blood vessels in fact they had switched her Haskins catheter to [address] Haskins is and suggested to continue irrigation the bladder manually. She had been documented to have unresectable carcinoma of the bladder. During the last 48 hours of admission she decided to go on hospice before that she was treated for the depression on ongoing basis. Eating [Set Up Only] Oral Care Dependent Toileting Hygiene dependent Shower/Bathing substantial Upper Body Dressing partial assistance Lower Body Dressing dependent Donning/Bristow Footwear dependent Rolling Left and Right substantial Sit to Lying substantial Lying to Sitting substantial Sit to Stand dependent Bed to Chair Transfers dependent Toilet Transfers dependent Car Transfers unable Walking 10' unable Walking 50' with Two Turns unable Walking 150' unable Curb or Step unable 4 Steps unable 12 Steps unable Picking Up Object unable [Wheelchair Mobility 50'] [ partial assistance [Wheelchair Mobility 150'] supervision GOALS: Eating [INDEPENDENT] Oral Care [INDEPENDENT] Toileting Hygiene partial assist Shower/Bathing partial assisted Upper Body Dressing set up Lower Body Dressing [ partial assistant program director Donning/Bristow Footwear partial assistant program director Rolling Left and Right supervision Sit to Lying supervision Lying to Sitting supervision Sit to Stand [ partial assistant program director Bed to Chair Transfers partial assist] Toilet Transfers [ partial assistance Car Transfers partial assistant program director Walking 10 partial assistant program director Walking 50' with Two Turns unable Walking 150' unable Curb or Step unable 4 Steps unable 12 Steps unable Picking Up Object supervision [Wheelchair Mobility 50'] [INDEPENDENT] [Wheelchair Mobility 150'] [INDEPENDENT] DISCHARGE PERFORMANCE: Eating set up Oral Care set up Toileting Hygiene substantial Shower/Bathing partial assisted Upper Body Dressing partial assist Lower Body Dressing partial assisted Donning/Bristow Footwear supervision Rolling Left and Right partial assistant program director Sit to Lying partial assist Lying to Sitting partial assistance Sit to Stand substantial Bed to Chair Transfers substantial] Toilet Transfers dependent Car Transfers dependent Walking 10' [ dependent Walking 50' with Two Turns unable Walking 150' unable Curb or Step unable 4 Steps unable 12 Steps unable Picking Up Objec unable [Wheelchair Mobility 50'] supervision [Wheelchair Mobility 150'] supervision patient was discharged to home with arrangement for the hospice and during the entire
== END 2020-08-19 14:59 | disposition hospice, home (50) | DRG 560 ==
PROVIDERS: Nurse Practitioner Adult Health; Urology; Admitting Provider Psychiatry & Neurology Neurology; PCP Family Medicine; Visit Provider Family Medicine
PROC: 0TCB8ZZ Extirpation of Matter from Bladder, Via Natural or Artificial Opening Endoscopic (ICD-10-PCS; CPT 52001; principal; 2020-08-15 10:30)
DX: Z47.89 Encounter for other orthopedic aftercare (principal); C79.51 Secondary malignant neoplasm of bone; G95.20 Unspecified cord compression; D62 Acute posthemorrhagic anemia; N39.0 Urinary tract infection, site not specified; I24.8 Other forms of acute ischemic heart disease; G82.20 Paraplegia, unspecified; C80.0 Disseminated malignant neoplasm, unspecified; M84.48XD Pathological fracture, other site, subsequent encounter for fracture with routine healing; M48.04 Spinal stenosis, thoracic region; C67.9 Malignant neoplasm of bladder, unspecified; R32 Unspecified urinary incontinence; B96.20 Unspecified Escherichia coli [E. coli] as the cause of diseases classified elsewhere; D69.6 Thrombocytopenia, unspecified; D72.829 Elevated white blood cell count, unspecified; E87.6 Hypokalemia; E83.51 Hypocalcemia; E83.42 Hypomagnesemia; E78.5 Hyperlipidemia, unspecified; H91.90 Unspecified hearing loss, unspecified ear; H40.9 Unspecified glaucoma; I10 Essential (primary) hypertension; M62.81 Muscle weakness (generalized); M81.0 Age-related osteoporosis without current pathological fracture; R79.89 Other specified abnormal findings of blood chemistry; R77.8 Other specified abnormalities of plasma proteins; Z98.890 Other specified postprocedural states; Z92.3 Personal history of irradiation; Z87.891 Personal history of nicotine dependence; R60.0 Localized edema; C67.5 Malignant neoplasm of bladder neck; T85.192D Other mechanical complication of implanted electronic neurostimulator of spinal cord electrode (lead), subsequent encounter; F32.9 Major depressive disorder, single episode, unspecified; M47.816 Spondylosis without myelopathy or radiculopathy, lumbar region; M47.814 Spondylosis without myelopathy or radiculopathy, thoracic region; R10.9 Unspecified abdominal pain; R31.0 Gross hematuria; R33.9 Retention of urine, unspecified; B96.5 Pseudomonas (aeruginosa) (mallei) (pseudomallei) as the cause of diseases classified elsewhere
CPT/HCPCS: 36415; 71045; 72070; 72100; 74018; 74178; 80048; 81001; 85025; 85027; 87040; 87077; 87086; 87088; 87186; 97110; 97112; 97116; 97162; 97166; 97530; 97535; 97542; A9270; J0696; J0713; J1650; J2405; J2704; J3010; J7030; J7040; J7120; J8540; Q9967